=== PATIENT | female | born 1950 | race Caucasian/White ===

== ENCOUNTER 2020-11-13 13:18 | Outpatient (REF) | payer MEDICARE, SELFPAY ==
--- NOTE | 2020-11-13 | US_ITS ---
EXAMINATION: US VENOUS ULTRASOUND WITH DOPPLER LOWER EXTREMITY, BILATERAL CLINICAL INFORMATION: Bilateral lower extremity edema and swelling COMPARISON: None TECHNIQUE: Ultrasound of the deep veins is performed from the hip to the calf with compression sonography and color and pulse Doppler assessment. Spectral analysis with color-flow imaging is performed. FINDINGS: RIGHT: There is normal venous compression and respiratory variation and augmented flow. The visualized common femoral vein, superficial femoral vein, profunda femoral vein, popliteal vein, and the trifurcation region shows no evidence of deep venous thrombosis. There is no significant popliteal fossa cyst. LEFT: There is normal venous compression and respiratory variation and augmented flow. The visualized common femoral vein, superficial femoral vein, profunda femoral vein, popliteal vein, and the trifurcation region shows no evidence of deep venous thrombosis. There is no significant popliteal fossa cyst. If the patient's symptoms persist, followup ultrasound in 5 days 7 days might be of value to exclude proximal propagation from a non-visualized calf vein. US/US venous duplex LE BI IMPRESSION: No DVT demonstrated in the right and the left lower extremity.
== END 2020-11-13 13:19 | disposition home or self-care (01) ==
LOC: HO.US 13:18
PROVIDERS: Visit Provider Internal Medicine
DX: R22.41 Localized swelling, mass and lump, right lower limb (principal)
CPT/HCPCS: 93970

== ENCOUNTER 2020-11-17 13:42 | Inpatient (IN) | payer MEDICARE, SELFPAY ==
--- NOTE | 2020-11-17 | ECG_ITS ---
Test Reason : AMS Blood Pressure : / mmHG Vent. Rate : 057 BPM Atrial Rate : 057 BPM P-R Int : 158 ms QRS Dur : 080 ms QT Int : 482 ms P-R-T Axes : 037 020 023 degrees QTc Int : 469 ms Sinus bradycardia Low voltage QRS Borderline ECG When compared with ECG of 12-NOV-2019 10:10, No significant change was found Referred By: Oz Ardon Electronically Signed By:CHAPARRO OLMOS
[2020-11-17 14:02] VITALS: BP 124/70; BP 138/51; PULSE 58; PULSE 60; RESP 16; TEMP 36.9; O2SAT 97; BMI 23.0
--- NOTE | 2020-11-17 14:47 | CT_ITS ---
EXAMINATION: CT BRAIN AND CHEST. CLINICAL INFORMATION: History of brain tumor. Rule out mass effect. COMPARISON: MRI brain 06/26/2020. CT chest 05/12/2020 TECHNIQUE: 5 mm thin axial and reformatted 2 mm thin sagittal coronal images of brain were obtained. DLP 597. Chest 2 views. FINDINGS: Brain: There is no acute intra-axial, extra-axial bleed, masses or midline shift. The lateral ventricles are symmetrical in size but enlarged. The larios to white matter differentiation is maintained. There is diffuse periventricular hypodensity compatible with chronic small vessel ischemic changes. Bone windows reveal no calvarial abnormality. There is no scalp soft tissue abnormality. Bilateral paranasal sinuses and mastoid air cells are well-aerated. There are bilateral posterior orbital intraconal masses. They are similar to the MRI study. Chest x-ray: The lungs are well-expanded and clear of acute process. The heart size and pulmonary vascularity is normal. There is right central venous port with its tip in the proximal SVC. CT/CT head/brain wo con IMPRESSION: No acute intracranial process seen. Cerebral volume loss and chronic small vessel ischemic changes. Bilateral posterior intraconal orbital masses similar to MRI of brain 06/26/2020 Unremarkable chest exam
--- NOTE | 2020-11-17 15:14 | PC.NURSE ---
Unable to access port to right chest, pt does reports freuqent issues with accessing in Oncology. Attempted to obtain peripheralline x2 and unable, another RN attempting with Ultrasound at this time
[2020-11-17] MEDS: 0.9 % Sodium Chloride 1,000 ML 999 ML IV ×2 (15:52→18:09)
--- NOTE | 2020-11-17 15:52 | PC.NURSE ---
22g in right hand obtained, awaiting phlebotomy for lab draw
[2020-11-17 16:51] VITALS: BP 142/53; PULSE 58; RESP 16; TEMP 36.8; O2SAT 97
[2020-11-17 16:55] LABS: Alanine Aminotransferase 26 U/L (0-31); Albumin Level 2.1 g/dL (3.5-5.0); Alkaline Phosphatase 189 U/L (39-117); Anion Gap 10 (12-20); Aspartate Amino Transferase 34 U/L (5-31); Bilirubin Total 0.5 mg/dL (0.0-1.0); Blood Urea Nitrogen 12 mg/dL (9-16); Calcium 7.7 mg/dL (8.4-10.2); Carbon Dioxide 27 mmol/L (22-29); Chloride 110 mmol/L (96-108); Creatinine Clr Calc Pharmacy 49.5; Estimated Glomerular Filt Rate > 60; Glucose Random 81 mg/dL (60-115); Potassium 4.4 mmol/l (3.3-5.1); Sodium 143 mmol/L (135-145); Total Protein 5.6 g/dL (6.5-8.0)
[2020-11-17 17:15] LABS: Basophils Absolute Auto 0.1 X10*3/uL (0.0-0.2); Basophils Percent Auto 1.3 % (0-2); Eosinophils Absolute Auto 0.3 X10*3/uL (0.0-0.4); Eosinophils Percent Auto 4.8 % (0-4); Hematocrit 42.1 % (37-47); Hemoglobin 12.8 g/dl (12.0-16.0); Imm Gran Abs Auto 0.03 X10*3/uL (0.00-0.03); Imm Gran Pct Auto 0.6 % (0.0-0.4); Lymphocytes Absolute Auto 1.2 X10*3/uL (1.2-4.9); Lymphocytes Percent Auto 22.2 % (20-40); MANUAL DIFF FLAG NO; Mean Corpuscular HGB Conc 30.4 g/dl (31.0-35.0); Mean Corpuscular Hemoglobin 25.7 pg (27.0-33.0); Mean Corpuscular Volume 84.5 fL (80-98); Mean Platelet Volume 9.3 fL (9.4-12.3); Monocytes Absolute Auto 0.8 X10*3/uL (0.1-1.2); Monocytes Percent Auto 13.9 % (2-11); Neutrophils Absolute Auto 3.1 X10*3/uL (2.0-8.3); Neutrophils Percent Auto 57.2 % (45-73); Platelet Count 256 X10*3/uL (160-400); Red Blood Count 4.98 X10*6/uL (4.20-5.50); Red Cell Distribution Width 17.8 % (11.0-16.0); White Blood Count 5.5 X10*3/uL (4.8-10.8)
--- NOTE | 2020-11-17 17:23 | PC.NURSE ---
Pt striaght cath for cloudy urine, specimen sent. Tolerated well. sinus erin on tele. No changes since last assessment. Coag tube clotted, will attempt to obtain another sample
[2020-11-17 17:25] LABS: Glucose Urine UA NEG (NEG); Nitrite Urine POS (NEG); Specific Gravity - Urine <= 1.005 (1.005-1.025); Urine Blood 2+ (NEG); Urine Ketones NEG (NEG); Urine Protein NEG (NEG-TRACE)
[2020-11-17 17:26] LABS: Appearance Urine CLOUDY; Color Urine STRAW; Leukocyte Esterase Urine 3+ (NEG)
--- NOTE | 2020-11-17 17:29 | ED.GENADULT ---
HPI - General Adult General Chief complaint: Weakness Stated complaint: Weakness x3 Time Seen by Provider: 11/17/20 14:26 Source: patient Limitations: no limitations History of Present Illness HPI narrative: 70-year-old female who presents emergency department for evaluation of weakness times 2-3 weeks. The patient states she has gotten to the point where she is unable to walk secondary to weakness in her lower extremities. The patient does have a history of uterine cancer 2 years prior and brain cancer diagnosed 4 years prior she states that she was having swelling in right lower extremity and saw her oncologist last week was diagnosed with bilateral DVTs. The patient is being treated with Lovenox 60 mg b.i.d.. The patient states that over the past 2-3 days she has had no strength in her lower extremities is having difficulty walking. She denied fever, chills, cough, chest pain, shortness of breath, abdominal pain, frequency, urgency or dysuria, change in her bowel movements. She states she has had a good appetite and is eating. She lives at home with her who is having difficulty caring for her secondary to her weakness. Related Data Home Medications Medication Instructions Recorded Confirmed anakinra 100 mg SUBCUT DAILY 08/29/20 08/29/20 cholecalciferol (vitamin D3) 1 tab PO DAILY 08/29/20 08/29/20 dalfampridine 10 mg PO Q12H 08/29/20 08/29/20 diazepam 2 mg PO BEDTIME PRN 08/29/20 08/29/20 gabapentin 100 mg PO BEDTIME 08/29/20 08/29/20 loperamide 1 cap PO DAILY PRN 08/29/20 08/29/20 melatonin 5 mg PO BEDTIME PRN 08/29/20 08/29/20 omeprazole 1 cap PO DAILY 08/29/20 08/29/20 ondansetron 8 mg PO Q8H 08/29/20 08/29/20 oxycodone 1 tab PO Q4H PRN 08/29/20 08/29/20 propranolol 80 mg PO DAILY 08/29/20 08/29/20 simvastatin 1 tab PO BEDTIME 08/29/20 08/29/20 vemurafenib [Zelboraf] 240 mg PO DAILY 08/29/20 08/29/20 Previous Rx's Medication Instructions Recorded levofloxacin 500 mg PO Q24H 7 Days #7 tab 09/15/20 omeprazole 20 mg PO DAILY #90 cap 10/06/20 enoxaparin 60 mg SUBCUT Q12H #20 ml 11/13/20 Allergies Allergy/AdvReac Type Severity Reaction Status Date / Time Sulfa (Sulfonamide Allergy Intermediate NAUSEA/DRY Verified 08/29/20 10:07 Antibiotics) HEAVES [SULFA (SULFONAMIDE ANTIBIOTICS)] codeine [CODEINE] Allergy Unknown VOMITING Verified 08/29/20 10:07 Review of Systems Review of Systems: Yes all other systems are reviewed and are negative Constitutional: Constitutional: Reports as per HPI Eyes: Eyes: Reports as per HPI ENT: Reports as per HPI Cardiovascular: Cardiovascular: Reports as per HPI Respiratory: Respiratory: Reports as per HPI Gastrointestinal: Gastrointestinal: Reports as per HPI Genitourinary: Genitourinary: Reports as per HPI Musculoskeletal: Musculoskeletal: Reports as per HPI Integumentary/Breasts: Skin/Breast: Reports as per HPI Neurologic: Reports as per HPI and Reports Abnormal speech present Psychiatric: Psychiatric: Reports as per HPI Allergic/Immunologic: Allergic/Immunologic: Reports as per HPI [facility] Past Medical History [facility] Narrative: The patient has a history of hypertension, hyperlipidemia, uterine cancer 2 years prior status post hysterectomy, 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 She denies tobacco and alcohol use. She lives at home with her . Medical History Erdheim-Flagler disease Social History Social History Smoking Status: Never smoker Use of substances other than those prescribed or required for medical reasons: No Advance Directives: Yes Advance Directives on File: Yes Advance Directives Date on File: 08/28/20 Physical Exam Vital Signs: Vital Signs: Last Vital Signs Temp 98.3 F 11/17/20 16:51 Pulse 56 11/17/20 18:00 Resp 16 11/17/20 18:00 BP 150/60 H 11/17/20 18:00 Pulse Ox 97 11/17/20 18:00 Body Mass Index 23.0 Const: General: cooperative and healthy appearing Orientation/consciousness: oriented to person and oriented to place Limitations: no limitations HENMT: Head: Yes normal to inspection, Yes normocephalic and Yes atraumatic Ears: external ears normal General nose exam: Normal external nose present Face and sinus: Yes normal facial exam Mouth: Normal oral and palatal mucosa present Throat: Yes posterior oropharynx normal Eyes: Periorbital: periorbital findings normal Eyelids: Yes eyelids normal Conjunctivae: conjunctivae normal Sclerae: sclerae normal Corneas: corneas normal Pupils: Equal, round and reactive pupils present Direct Ophthalmoscopy: normal light reflex Neck: Neck: Yes full ROM, Yes no lymphadenopathy, Yes no meningeal signs, Yes trachea midline and Yes supple Chest: Chest palpation & inspection: normal inspection of the chest and normal palpation of entire chest wall Resp: Effort & Inspection: normal respiratory effort and able to speak in complete sentences Auscultation: clear to auscultation bilaterally Cardio: Rate: regular rate Rhythm: regular rhythm Heart sounds: S1 normal heart sound present, S2 normal heart sound present and no murmurs GI: Inspection: Yes normal to inspection Palpation (GI): Soft to palpation, nontender, no guarding, not rigid and No hepatosplenomegaly present : General: Yes no CVA tenderness Back/Spine/Pelvis: Back: no CVA tenderness Cervical Spine: normal cervical lordosis Thoracic/Lumbar Spine: thoracic and lumbar spine normal to inspection Skin: Lesions: no lesions Rashes: no rashes Wounds: no wounds Neuro: General: oriented to person, oriented to place and no meningeal signs Cranial nerves: Yes CN's II-XII intact bilaterally and Yes Equal, round and reactive pupils present Cognition (Neuro): normal cognition Speech: Abnormal speech present Motor exam (neuro): Other motor observations present (Bilateral lower extremity weakness, symmetric, unable to hold up against gr) Extrem: General: Yes other (Bilateral lower extremity swelling right greater than left) Psych: Appearance: well kempt Mental Status: mental status grossly normal Speech and movement: Normal speech and movement present Affect: normal affect Attitude: cooperative Thought process: Normal thought process present Thought content: Normal thought content present Course Course Course Narrative: 70-year-old female who presents emergency department for evaluation of weakness times 2-3 weeks, worse over the last 3 days, recently diagnosed with bilateral lower extremity DVTs started on Lovenox. Physical examination did reveal lower extremity weakness, the patient is not able to lift her legs up against gravity can move them side to side. She also significant swelling of the right lower extremity compared to the left secondary to a DVT. Laboratory evaluation did reveal low calcium of 7.7. Urinalysis revealed 3+ leukocyte esterase, 1+ nitrates. Urinalysis revealed 1 WBCs too numerous to count and 4+ bacteria. Given these findings, concerned the patient may have a urinary tract infection causing her weakness, it may also be related to the swelling of her lower extremities secondary to DVTs. I did order Levaquin 750 mg IV on this patient. I did discuss the patient's presentation with the covering hospitalist the patient will be admitted for further treatment. Medical Decision Making Lab Data Result diagrams: 11/17/20 17:05 11/17/20 16:26 Labs: Lab Results 11/17/20 11/17/20 11/17/20 Range/Units 16:26 16:26 17:05 WBC 5.5 (4.8-10.8) X10*3/uL RBC 4.98 (4.20-5.50) X10*6/uL Hgb 12.8 (12.0-16.0) g/dl Hct 42.1 (37-47) % MCV 84.5 (80-98) fL MCH 25.7 L (27.0-33.0) pg MCHC 30.4 L (31.0-35.0) g/dl RDW 17.8 H (11.0-16.0) % Plt Count 256 (160-400) X10*3/uL MPV 9.3 L (9.4-12.3) fL Immature Gran % (Auto) 0.6 H (0.0-0.4) % Neut % (Auto) 57.2 (45-73) % Lymph % (Auto) 22.2 (20-40) % Durham % (Auto) 13.9 H (2-11) % Eos % (Auto) 4.8 H (0-4) % Baso % (Auto) 1.3 (0-2) % Lymph # (Auto) 1.2 (1.2-4.9) X10*3/uL Durham # (Auto) 0.8 (0.1-1.2) X10*3/uL Eos # (Auto) 0.3 (0.0-0.4) X10*3/uL Baso # (Auto) 0.1 (0.0-0.2) X10*3/uL Abs Immat Gran (auto) 0.03 (0.00-0.03) X10*3/uL Absolute Neuts (auto) 3.1 (2.0-8.3) X10*3/uL Absolute Nucleated RBC 0.000 (0.0-0.012) X10*3/uL Nucleated RBC % (auto) 0.0 (0.0-0.2) /100WBC PT Cancelled INR Cancelled APTT Cancelled Sodium 143 (135-145) mmol/L Potassium 4.4 (3.3-5.1) mmol/l Chloride 110 H (96-108) mmol/L Carbon Dioxide 27 (22-29) mmol/L Anion Gap 10 L (12-20) BUN 12 (9-16) mg/dL Creatinine 0.90 (0.5-1.4) mg/dL Estim Creat Clear Calc 49.5 Estimated GFR > 60 Random Glucose 81 (60-115) mg/dL Lactic Acid (0.5-2.0) mmol/L Calcium 7.7 L (8.4-10.2) mg/dL Total Bilirubin 0.5 (0.0-1.0) mg/dL AST 34 H D (5-31) U/L ALT 26 (0-31) U/L Alkaline Phosphatase 189 H D (39-117) U/L Troponin I High Sens (<3.5-17.0) ng/L Total Protein 5.6 L (6.5-8.0) g/dL Albumin 2.1 L (3.5-5.0) g/dL Urine Color Urine Appearance Urine pH (5.0-8.0) Ur Specific Oneill (1.005-1.025) Urine Protein (NEG-TRACE) MG/DL Urine Glucose (UA) (NEG) MG/DL Urine Ketones (NEG) MG/DL Urine Blood (NEG) Urine Nitrite (NEG) Ur Leukocyte Esterase (NEG) Urine RBC (0) /HPF Urine WBC (0-4) /HPF Ur Squamous Epith Cells /LPF Calcium Oxalate Crystal /LPF Urine Bacteria /LPF 11/17/20 11/17/20 11/17/20 Range/Units 17:05 17:05 17:16 WBC (4.8-10.8) X10*3/uL RBC (4.20-5.50) X10*6/uL Hgb (12.0-16.0) g/dl Hct (37-47) % MCV (80-98) fL MCH (27.0-33.0) pg MCHC (31.0-35.0) g/dl RDW (11.0-16.0) % Plt Count (160-400) X10*3/uL MPV (9.4-12.3) fL Immature Gran % (Auto) (0.0-0.4) % Neut % (Auto) (45-73) % Lymph % (Auto) (20-40) % Durham % (Auto) (2-11) % Eos % (Auto) (0-4) % Baso % (Auto) (0-2) % Lymph # (Auto) (1.2-4.9) X10*3/uL Durham # (Auto) (0.1-1.2) X10*3/uL Eos # (Auto) (0.0-0.4) X10*3/uL Baso # (Auto) (0.0-0.2) X10*3/uL Abs Immat Gran (auto) (0.00-0.03) X10*3/uL Absolute Neuts (auto) (2.0-8.3) X10*3/uL Absolute Nucleated RBC (0.0-0.012) X10*3/uL Nucleated RBC % (auto) (0.0-0.2) /100WBC PT INR APTT Sodium (135-145) mmol/L Potassium (3.3-5.1) mmol/l Chloride (96-108) mmol/L Carbon Dioxide (22-29) mmol/L Anion Gap (12-20) BUN (9-16) mg/dL Creatinine (0.5-1.4) mg/dL Estim Creat Clear Calc Estimated GFR Random Glucose (60-115) mg/dL Lactic Acid 1.5 (0.5-2.0) mmol/L Calcium (8.4-10.2) mg/dL Total Bilirubin (0.0-1.0) mg/dL AST (5-31) U/L ALT (0-31) U/L Alkaline Phosphatase (39-117) U/L Troponin I High Sens 5.2 (<3.5-17.0) ng/L Total Protein (6.5-8.0) g/dL Albumin (3.5-5.0) g/dL Urine Color STRAW Urine Appearance CLOUDY Urine pH 6.0 (5.0-8.0) Ur Specific Oneill <= 1.005 (1.005-1.025) Urine Protein NEG (NEG-TRACE) MG/DL Urine Glucose (UA) NEG (NEG) MG/DL Urine Ketones NEG (NEG) MG/DL Urine Blood 2+ H (NEG) Urine Nitrite POS H (NEG) Ur Leukocyte Esterase 3+ H (NEG) Urine RBC 5-9 H (0) /HPF Urine WBC TNTC H (0-4) /HPF Ur Squamous Epith Cells NONE /LPF Calcium Oxalate Crystal TRACE /LPF Urine Bacteria 4+ /LPF Discharge Plan Discharge Clinical Impression: Weakness Urinary tract infection Qualifiers: Urinary tract infection type: acute cystitis Hematuria presence: without hematuria Qualified Code(s): N30.00 - Acute cystitis without hematuria Patient Disposition: Admitted As Inpatient
[2020-11-17 17:30] LABS: Bacteria Urine 4+ /LPF; Calcium Oxalate Crystals Urine TRACE /LPF; WBC Urine TNTC /HPF (0-4)
[2020-11-17 17:45] LABS: Lactic Acid 1.5 mmol/L (0.5-2.0)
[2020-11-17 17:52] LABS: Troponin-I High Sensitivity 5.2 ng/L (<3.5-17.0)
[2020-11-17 18:00] VITALS: BP 150/60; PULSE 56; RESP 16; O2SAT 97
[2020-11-17] MEDS: levoFLOXacin/D5W 750 MG/150 ML PIGGYBACK 100 MG IV (18:09)
[2020-11-17 19:04] LABS: Influenza A PCR NEGATIVE (Negative); Influenza B PCR NEGATIVE (Negative); Resp Syncy Virus RNA Qual PCR NEGATIVE (Negative); SARS COV2 PCR INHOUSE NEGATIVE (Negative)
--- NOTE | 2020-11-17 19:32 | PC.NURSE ---
PT AWAKE AND REQUESTING TO BE CHG. PT STATES I URINATED IN MY BED . PT REQUESTING TO CALL ON PHONE. PT CALLING AT THIS TIME. PT DENIES ANY OTHER COMPLAINTS. PT A&OX3, SKIN W/D/P. AWAITING FOR FURTHER ORDERS.
--- NOTE | 2020-11-17 20:27 | PC.NURSE ---
report given to rhea Miner. pt to floor at this time in stretcher.
[2020-11-17] MEDS: cefTRIAXone sodium 1 GM in 0.9 % Sodium Chloride 50 ML IV (21:19)
[2020-11-17] MEDS: Enoxaparin Sodium 80 MG/0.8 ML SYRINGE 60 MG SUBCUT (21:19)
[2020-11-17] MEDS: 0.9 % Sodium Chloride Flush 3 ML SYRINGE IVFLUSH (21:20)
[2020-11-17 22:19] LABS: Hemoglobin 12.1 g/dl (12.0-16.0); Mean Corpuscular HGB Conc 30.3 g/dl (31.0-35.0); Mean Corpuscular Hemoglobin 25.7 pg (27.0-33.0); Mean Corpuscular Volume 84.9 fL (80-98); Mean Platelet Volume 9.1 fL (9.4-12.3); Platelet Count 265 X10*3/uL (160-400); Red Blood Count 4.71 X10*6/uL (4.20-5.50); Red Cell Distribution Width 17.7 % (11.0-16.0); White Blood Count 5.5 X10*3/uL (4.8-10.8)
[2020-11-17 22:29] LABS: Partial Thromboplastin Time 40.1 SEC (24.1-38.0)
[2020-11-17 22:51] LABS: Prothrombin Time 12.4 SEC (10.8-13.0)
[2020-11-17 23:50] VITALS: BP 127/53; PULSE 59; RESP 19; TEMP 36.4; O2SAT 98
[2020-11-18] MEDS: Enoxaparin Sodium 60 MG/0.6 ML SYRINGE SUBCUT ×2 (05:19→16:46)
[2020-11-18 06:37] LABS: MANUAL DIFF FLAG NO
[2020-11-18 06:49] LABS: INTERNATIONAL NORM RATIO 1.1 (0.9-1.1); Prothrombin Time 13.2 SEC (10.8-13.0)
[2020-11-18 06:54] LABS: Basophils Absolute Auto 0.1 X10*3/uL (0.0-0.2); Basophils Percent Auto 0.8 % (0-2); Eosinophils Absolute Auto 0.3 X10*3/uL (0.0-0.4); Eosinophils Percent Auto 4.2 % (0-4); Hematocrit 39.6 % (37-47); Hemoglobin 12.2 g/dl (12.0-16.0); Imm Gran Abs Auto 0.04 X10*3/uL (0.00-0.03); Imm Gran Pct Auto 0.7 % (0.0-0.4); Lymphocytes Absolute Auto 0.9 X10*3/uL (1.2-4.9); Lymphocytes Percent Auto 14.9 % (20-40); Mean Corpuscular HGB Conc 30.8 g/dl (31.0-35.0); Mean Corpuscular Hemoglobin 25.7 pg (27.0-33.0); Mean Corpuscular Volume 83.4 fL (80-98); Mean Platelet Volume 9.7 fL (9.4-12.3); Monocytes Absolute Auto 0.8 X10*3/uL (0.1-1.2); Monocytes Percent Auto 13.8 % (2-11); Neutrophils Absolute Auto 3.9 X10*3/uL (2.0-8.3); Neutrophils Percent Auto 65.6 % (45-73); Platelet Count 277 X10*3/uL (160-400); Red Blood Count 4.75 X10*6/uL (4.20-5.50); Red Cell Distribution Width 17.7 % (11.0-16.0); White Blood Count 5.9 X10*3/uL (4.8-10.8)
[2020-11-18 07:13] LABS: Anion Gap 12 (12-20); Blood Urea Nitrogen 10 mg/dL (9-16); Calcium 7.6 mg/dL (8.4-10.2); Carbon Dioxide 23 mmol/L (22-29); Chloride 117 mmol/L (96-108); Creatinine Clr Calc Pharmacy 58.6; Estimated Glomerular Filt Rate > 60; Glucose Random 78 mg/dL (60-115); Sodium 148 mmol/L (135-145)
[2020-11-18 07:18] VITALS: BP 95/63; PULSE 95; RESP 15; TEMP 36.5; O2SAT 96
[2020-11-18] MEDS: Dextrose 5 % 1,000 ML 50 ML IVCONT (08:28)
[2020-11-18] MEDS: 0.9 % Sodium Chloride Flush 3 ML SYRINGE IVFLUSH (08:32)
[2020-11-18] MEDS: Cholecalciferol (Vitamin D3) 25 MCG TABLET 50 MCG PO (08:34)
[2020-11-18] MEDS: Omeprazole 20 MG CAPSULE.DR PO (08:34)
--- NOTE | 2020-11-18 10:10 | MHC.CM.PN ---
Addendum entered by Beronica Esquivel RN 11/18/20 10:21: /HCP- MAINE GROSSADAMARIS CELL [phone], HOME [phone] PCP AND ONCOLOGY: DR. TA ANDERSON, PER WAS RECEIVING MONTHLY TREATMENTS ON [facility], HOWEVER STOPPED CURRENT TREATMENT DUE TO CAUSING WEAKNESS AND PATIENT HAS NOT STARTED NEW TREATMENT. [facility]- WEEKLY NURSING VISITS, PT TWICE WEEKLY, RECENTLY STARTED OT HOWEVER UNABLE TO PARTICIPATE DUE TO WEAKNESS, PER [facility] FOR PALLIATIVE CARE PER PATIENT HAS CHRONIC UTI'S AND ONE OF HER MEDICATIONS FOR ERDHEIM-JÚNIOR'S DISEASE, DALFAMPRIDINE WHICH PATIENT RECEIVES TWICE A DAY AND PER PCP SHOULD BE DECREASED TO ONCE DAILY WHEN PATIENT HAS UTI. Original Note: EMR REVIEWED, DISCHARGE PLAN HOME WITH INCREASE IN [facility] SERVICES WITH HOME PHYSICAL THERAPY AND OCCUPATIONAL THERAPY VS SHORT TERM REHAB, PER PATIENTS MAINE PATIENT HAD A BAD EXPERIENCE AT [facility], PT DID HAVE A BETTER EXPERIENCE AT [facility], PREFERS SHE GOES TO SHORT TERM REHAB ALTHOUGH PATIENT IS HESITANT. PER (MAINE) WHO IS HEALTH [facility]ARE [employer] PATIENT HAD BECOME WEAKER SINCE [facility] APPOINTMENT LAST TUESDAY AND OVER THE WEEKEND WAS UNABLE TO STAND AT ALL, REPORTS PT WAS DIAGNOSED WITH BILATERAL DVT'S LAST TUESDAY AND STARTED ON LOVENOX INJECTIONS 60MG TWICE DAILY BUT DID NOT RECEIVE THEM UNTIL TUESDAY. REPORTS WHEN HE ATTEMPTED TO ASSIST PATIENT WITH TRANSFERRING SHE ENDED UP ON THE GROUND THREE TIMES AND HE HAD TO KEEP HER IN BED FOR THE LAST FEW DAYS PREVIOUS TO COMING TO THE HOSPITAL ON 11/17/20, REPORTS THE [facility] CAME IN ON TUESDAY AND CALLED PATIENTS [facility] OFFICE AND WAS DIRECTED TO TAKE PATIENT TO HOSPITAL. /HCP- MAINE FIGUEREDO CELL [id number]
[2020-11-18 11:39] VITALS: BP 106/64; PULSE 68; RESP 17; TEMP 36.6; O2SAT 98
--- NOTE | 2020-11-18 14:41 | HO.PM.IMPN ---
Subjective Subjective Date of Service: 11/18/20 Interval History: uti , general weakness Review of Systems Patient seems generalized weak, denies any chest pain or shortness of breath or abdominal pain. Physical Exam Vital Signs: Vital Signs: Last Vital Signs Temp 97.9 F 11/18/20 11:39 Pulse 68 11/18/20 11:39 Resp 17 11/18/20 11:39 BP 106/64 11/18/20 11:39 Pulse Ox 98 11/18/20 11:39 Body Mass Index 23.0 Physical exam: Constitutional: Not in acute distress Cvs: [id number], [id number] , no murmur res: clear to auscultation ,no rhonchii or wheezing abd: no rebound or guarding ,nt, bs present. ext pulses present , no cyanosis neuro: axo3 , nonfocal. Objective Data Current Medications Generic Name Dose Route Start Last Admin Trade Name Freq PRN Reason Stop Dose Admin Acetaminophen 650 mg 11/17/20 20:58 Acetaminophen 325 Mg Tablet PO Q6H PRN Pain, Mild (Pain Scale 1-3) Atorvastatin Calcium 10 mg 11/18/20 21:00 Atorvastatin Calcium 10 Mg Tablet PO BEDTIME LANEY Diazepam 2 mg 11/17/20 21:49 Diazepam 2 Mg Tablet PO BEDTIME PRN Anxiety Enoxaparin Sodium 60 mg 11/18/20 05:00 11/18/20 05:19 Enoxaparin Sodium 60 Mg/0.6 Ml Syringe SUBCUT 60 mg BID@0500,1700 LANEY Administration Gabapentin 100 mg 11/18/20 21:00 Gabapentin 100 Mg Capsule PO BEDTIME LANEY Ceftriaxone Sodium 1 gm/ 50 mls @ 100 mls/hr 11/17/20 21:00 11/17/20 21:56 Sodium Chloride IV Infused Q24H LANEY Infusion Dextrose 1,000 mls @ 50 mls/hr 11/18/20 08:00 11/18/20 08:28 D5w IVCONT 50 mls/hr .Q20H LANEY Administration Loperamide HCl 2 mg 11/17/20 21:49 Loperamide Hcl 2 Mg Capsule PO DAILY PRN Diarrhea Melatonin 3 mg 11/17/20 22:00 Melatonin 3 Mg Tablet PO BEDTIME PRN Insomnia Patient Own 100 each 11/18/20 13:00 11/18/20 14:36 Medication (Kineret SUBCUT 100 each 100 Mg/0.67 Ml) DAILY LANEY Administration Non-Formulary Medication 10 mg 11/17/20 22:00 Dalfampridine PO Q12H LANEY Patient Own 240 each 11/18/20 13:00 11/18/20 14:37 Medication (Zelboraf PO 240 each 240 Mg Tablet) DAILY LANEY Administration Omeprazole 20 mg 11/18/20 09:00 11/18/20 08:34 Omeprazole 20 Mg Capsule.Dr PO 20 mg DAILY LANEY Administration Ondansetron HCl 4 mg 11/17/20 20:58 Ondansetron Hcl 4 Mg/2 Ml Vial IVPUSH Q8H PRN Nausea and Vomiting Oxycodone HCl 5 mg 11/17/20 21:49 Oxycodone Hcl Immed Release 5 Mg Tablet PO Q4H PRN Pain Pharmacy Consult 1 each 11/17/20 19:41 Consult Rx Perform Med Rec MISCELLANE ONCE PRN Consult order Pharmacy Consult 1 each 11/17/20 20:10 Consult Rx Perform Med Rec MISCELLANE ONCE PRN Consult order Sodium Chloride 3 ml 11/18/20 00:00 11/18/20 08:32 0.9 % Sodium Chloride Flush 3 Ml Syringe IVFLUSH 3 ml QSHIFT LANEY Administration Vitamin D 50 mcg 11/18/20 09:00 11/18/20 08:34 Cholecalciferol (Vitamin D3) 25 Mcg Tablet PO 50 mcg DAILY LANEY Administration Labs CBC & Chem 7: 11/18/20 06:15 11/18/20 06:14 Microbiology Microbiology Results: Microbiology 11/17/20 Unknown Urine Catheterized - Straight Catheter Urine Culture - Preliminary Gram negative abraham Assessment and Plan (1) Weakness: Status: Acute (2) Urinary tract infection: Status: Acute Assessment and Plan: 69 year women admitted with resistant urinary tract infection. last ua culture: Grew Proteus mirabilis: Sensitive to ertapenem. 1. Resistant urinary tract infection. Will start the patient on ertapenem, DC ceftriaxone, id evaluation. 2. Hyperlipidemia. Continue statin. 3. Hypertension. Continue propranolol. 4. GERD. Continue PPI. 5. Erdheim-Neno disease. Patient is on anakinra and zelboraf will have to bring from home as they are non formulary. 6. DVT prophylaxis with Heparin
[2020-11-18 15:34] LABS: Sodium 143 mmol/L (135-145)
[2020-11-18 15:43] VITALS: BP 124/62; PULSE 70; RESP 16; TEMP 36.4; O2SAT 98
--- NOTE | 2020-11-18 16:36 | HP_ITS ---
DATE OF SERVICE: 11/17/2020 CHIEF COMPLAINT: Weakness. HISTORY OF PRESENT ILLNESS: A 70-year-old woman presented with complaints of 2 weeks of increased weakness. Patient reports that she has even had difficulty just walking. She was recently diagnosed with bilateral DVTs. She does have some noted right lower extremity swelling. She is on Lovenox 60 mg b.i.d. She lives at home with her . She does have a history of UTIs in the past and a history of uterine cancer and brain cancer. She denied chest pain, shortness of breath, nausea, vomiting, diarrhea, fever. She did report some chills, but denied any dysuria or abdominal pain. Labs all within acceptable limits. Urinalysis was positive. COVID negative. Her vital signs stable with no fever. She was given a dose of Levaquin in the ER and 1 dose of therapeutic Lovenox that she had not had any today. She will be admitted for further management and treatment of weakness secondary to urinary tract infection. 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 2. Vertigo. 3. Hypertension. 4. Osteoporosis. 5. Endometrial cancer. 6. Hysterectomy. SOCIAL HISTORY: Lives with her . Denies any alcohol, tobacco, or illicit drug use. Uses a walker and sometimes a wheelchair. FAMILY HISTORY: Denies any cardiac disease. ALLERGIES: TO SULFA AND CODEINE. MEDICATIONS: 1. Dalfampridine ER 10 mg twice daily. 2. Lovenox 60 mg twice daily. 3. Simvastatin 20 mg at bedtime. 4. Zelboraf 240 mg. 5. Vitamin D3 50 mcg tablets daily. 6. Propranolol 80 mg. 7. Gabapentin 100 mg. 8. Gabapentin 300 mg. REVIEW OF SYSTEMS: CONSTITUTIONAL: See HPI. RESPIRATORY: Denies any shortness of breath, cough, or sputum production. CARDIOVASCULAR: Denies any chest pain, orthopnea, PND, or edema. GASTROINTESTINAL: Denies any dysphagia, abdominal pain, nausea, vomiting, or diarrhea. GENITOURINARY: Denies any dysuria, frequency, hematuria. MUSCULOSKELETAL: Denies any joint pain or swelling. NEUROPSYCH: Denies any weakness or seizures. All other systems reviewed are negative. PHYSICAL EXAMINATION: CONSTITUTIONAL: Resting in bed. No acute distress. VITAL SIGNS: 98.3, 56, 16, 150/60, 97% on room air. SKIN: Intact. No rashes or open sores. HEENT: Head is normocephalic, atraumatic. Eyes, pupils are PERRLA. Sclerae anicteric. Mouth and Throat: Mucous membranes are intact and moist. NECK: Supple. No lymphadenopathy. No JVD noted. CHEST: Clear to auscultation without wheezes, rhonchi, or rales. HEART: Regular rate and rhythm. Clear S1, S2. No murmurs, rubs, or gallops. Right lower extremity edema. ABDOMEN: Positive bowel sounds. Soft, nontender. No hepatomegaly or splenomegaly noted. NEURO: The patient is alert and oriented x3. No focal deficits noted. LABORATORY DATA: White blood cell count 5.5, hemoglobin 12.8, hematocrit 42.1, and platelets 256. Sodium is 143, potassium 4.4, chloride is 110, BUN is 12, and creatinine 0.90. Troponin is 5.2. COVID is negative. Urinalysis positive. Nitrites with too numerous to count WBCs. ASSESSMENT AND PLAN: A 70-year-old woman who is being admitted with weakness secondary to urinary tract infection. 1. Urinary tract infection. No sepsis. We will treat with Rocephin, follow urine cultures likely contributing to her weakness. 2. Weakness. History of urinary tract infection. Acute today. The patient declined short-term rehab, but would like rehab in the house if she qualifies. 3. Recent deep vein thrombosis. Continue therapeutic Lovenox. 4. History of Erdheim-[place] disease/endometrial cancer. Continue chemotherapeutics. 5. Deep vein thrombosis prophylaxis with therapeutic Lovenox. 6. Case discussed with Dr. Álvaro Bhatia. 7. Full code. TAMMY Gupta MD JR/[place] / [phone]
[2020-11-18] MEDS: Ertapenem Sodium 1 GM in 0.9 % Sodium Chloride 50 ML IV (16:46)
[2020-11-18] MEDS: Atorvastatin Calcium 10 MG TABLET PO (20:22)
[2020-11-18] MEDS: Gabapentin 100 MG CAPSULE PO (20:22)
[2020-11-18 23:46] VITALS: BP 115/74; PULSE 68; RESP 16; TEMP 36.2; O2SAT 99
[2020-11-19] MEDS: Enoxaparin Sodium 60 MG/0.6 ML SYRINGE SUBCUT ×2 (04:39→16:42)
[2020-11-19 07:03] VITALS: BP 139/67; PULSE 72; RESP 17; TEMP 36.5; O2SAT 99
[2020-11-19 07:14] LABS: Anion Gap 14 (12-20); Blood Urea Nitrogen 11 mg/dL (9-16); Calcium 7.9 mg/dL (8.4-10.2); Carbon Dioxide 20 mmol/L (22-29); Chloride 112 mmol/L (96-108); Creatinine Clr Calc Pharmacy 53.6; Estimated Glomerular Filt Rate > 60; Glucose Random 79 mg/dL (60-115); Potassium 4.8 mmol/l (3.3-5.1); Sodium 141 mmol/L (135-145)
--- NOTE | 2020-11-19 08:55 | MHC.HEMONCSW ---
S3W ADMISSION DUE TO UTI. MET WITH , REPORTS SHE IS TOO WEAK TO BE CARED FOR AT HOME. HE REQUESTS SHORT TERM REHAB TO [facility] RE-FAXED [facility]ISTANCE APPLICATION. DISCUSSED DIFFICULTY OF [place]....HIGHLY VERBAL ABOUT THIS BUT COMMITTED TO PATIENT. IS MANAGING TO EAT AND SLEEP BUT WORRIES ABOUT PATIENT. REASSURANCE AND SUPPORT PROVIDED. HE IS AWARE OF MY AVAILABILITY..
[2020-11-19] MEDS: Cholecalciferol (Vitamin D3) 25 MCG TABLET 50 MCG PO (09:27)
[2020-11-19] MEDS: Omeprazole 20 MG CAPSULE.DR PO (09:27)
[2020-11-19] MEDS: Ertapenem Sodium 1 GM in 0.9 % Sodium Chloride 50 ML IV (09:28)
[2020-11-19] MEDS: 0.9 % Sodium Chloride Flush 3 ML SYRINGE IVFLUSH ×3 (09:38→23:54)
--- NOTE | 2020-11-19 12:10 | P.PNIM_ITS ---
Subjective Subjective Date of Service: 11/20/20 Interval History: uti , generlaised weakness progressing form 3-4 weeks Review of Systems Still feels generalized weak but says that she could able to lift her legs a bit better, denies any chest pain or shortness of breath or abdominal pain. Physical Exam Vital Signs: Vital Signs: Last Vital Signs Temp 97.7 F 11/19/20 07:03 Pulse 72 11/19/20 07:03 Resp 17 11/19/20 07:03 BP 139/67 11/19/20 07:03 Pulse Ox 99 11/19/20 07:03 Body Mass Index 23.0 Physical exam: Constitutional: Noted due distress. Cvs: [id number], [id number] , no murmur res: clear to auscultation ,no rhonchii or wheezing abd: no rebound or guarding ,nt, bs present. ext: pulses present , no cyanosis neuro: axo3 , generalised weak , lifting her leg slightly better. Objective Data Current Medications Generic Name Dose Route Start Last Admin Trade Name Griffinq PRN Reason Stop Dose Admin Acetaminophen 650 mg 11/17/20 20:58 Acetaminophen 325 Mg Tablet PO Q6H PRN Pain, Mild (Pain Scale 1-3) Atorvastatin Calcium 10 mg 11/18/20 21:00 11/18/20 20:22 Atorvastatin Calcium 10 Mg Tablet PO 10 mg BEDTIME LANEY Administration Diazepam 2 mg 11/17/20 21:49 Diazepam 2 Mg Tablet PO BEDTIME PRN Anxiety Enoxaparin Sodium 60 mg 11/18/20 05:00 11/19/20 04:39 Enoxaparin Sodium 60 Mg/0.6 Ml Syringe SUBCUT 60 mg BID@0500,1700 LANEY Administration Gabapentin 100 mg 11/18/20 21:00 11/18/20 20:22 Gabapentin 100 Mg Capsule PO 100 mg BEDTIME LANEY Administration Ertapenem 1 gm/ Sodium 50 mls @ 100 mls/hr 11/18/20 16:00 11/19/20 10:07 Chloride IV Infused DAILY LANEY Infusion Loperamide HCl 2 mg 11/17/20 21:49 Loperamide Hcl 2 Mg Capsule PO DAILY PRN Diarrhea Melatonin 3 mg 11/17/20 22:00 Melatonin 3 Mg Tablet PO BEDTIME PRN Insomnia Non-Formulary Medication 10 mg 11/17/20 22:00 Dalfampridine PO Q12H LANEY Patient Own 240 each 11/18/20 13:00 11/19/20 09:27 Medication (Zelboraf PO 240 each 240 Mg Tablet) DAILY LANEY Administration Patient Own 100 each 11/19/20 21:00 Medication (Kineret SUBCUT 100 Mg/0.67 Ml) BEDTIME [facility] Omeprazole 20 mg 11/18/20 09:00 11/19/20 09:27 Omeprazole 20 Mg Capsule.Dr PO 20 mg DAILY LANEY Administration Ondansetron HCl 4 mg 11/17/20 20:58 Ondansetron Hcl 4 Mg/2 Ml Vial IVPUSH Q8H PRN Nausea and Vomiting Oxycodone HCl 5 mg 11/17/20 21:49 Oxycodone Hcl Immed Release 5 Mg Tablet PO Q4H PRN Pain Pharmacy Consult 1 each 11/17/20 19:41 Consult Rx Perform Med Rec MISCELLANE ONCE PRN Consult order Pharmacy Consult 1 each 11/17/20 20:10 Consult Rx Perform Med Rec MISCELLANE ONCE PRN Consult order Sodium Chloride 3 ml 11/18/20 00:00 11/19/20 09:38 0.9 % Sodium Chloride Flush 3 Ml Syringe IVFLUSH 3 ml QSHIFT LANEY Administration Vitamin D 50 mcg 11/18/20 09:00 11/19/20 09:27 Cholecalciferol (Vitamin D3) 25 Mcg Tablet PO 50 mcg DAILY LANEY Administration Labs CBC & Chem 7: 11/18/20 06:15 11/19/20 06:06 Microbiology Microbiology Results: Microbiology 11/17/20 Unknown Urine Catheterized - Straight Catheter Urine Culture - Final Escherichia coli 11/17/20 17:05 Blood - Venous Blood Culture - Preliminary No growth after 24 hours. 11/17/20 16:26 Blood - Venous Blood Culture - Preliminary No growth after 24 hours. Assessment and Plan (1) Weakness: Status: Acute (2) Urinary tract infection: Problem details: She has ESBL UTI She has mild dysuria,no pyelonephritis or toxicity Status: Acute Assessment and Plan: 69 year women admitted with resistant urinary tract infection. last ua culture: Grew Proteus mirabilis: Sensitive to ertapenem. 1. Resistant urinary tract infection. on patient on ertapenem, id evaluation pending. 2. Hyperlipidemia. Continue statin. 3. Hypertension. Continue propranolol. 4. GERD. Continue PPI. 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 6. DVT prophylaxis with Heparin
--- NOTE | 2020-11-19 13:00 | PM.NEUROCN ---
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 She had mediastinal biopsy suggesting that the diagnosis was likely chronic. Orbital lesions were removed. She was initially treated with interferon without any significant response. She was later treated with Zelboraf and Kineret. She was following Dr. Vincent He in oncology, had also seen Dr. Encinas, specialist on this condition, in [place]. She was admitted hospital with increasing difficulty walking and lethargy. Of note, she responded quite well to dalfampridine with significant improvement in walking, but more recently that effect was not noted. Review of Systems Review of Systems: As reported in initial HPI. There was no complaint of any recent cold or flu-like illness. Her complaints mostly were unsteadiness lethargy and weakness. Neurologic: Reports as per HPI and Reports Abnormal speech present [facility] Past Medical History Medical History Erdheim-[place] disease Social History Social History Household Members: Spouse Housing: House Do you presently have visiting nurse or other home services: Yes Smoking Status: Never smoker Use of substances other than those prescribed or required for medical reasons: No Currently Displaying Signs/Symptoms of Drug Intoxication Withdrawal: No Have you been hit, kicked, punched, or otherwise hurt by someone within the past year? If so, by whom?: No Do you feel safe in your current relationship?: Yes Is there a partner from a previous relationship who is making you feel unsafe now?: No Are you made to feel afraid or neglected: No Advance Directives: Yes Advance Directives on File: Yes Advance Directives Date on File: 08/28/20 Do you have thoughts of harming others: None Do you have a plan to hurt others: No Plan Recently lost weight without trying: No service: No Current occupational status: retired Meds Allergies Allergy/AdvReac Type Severity Reaction Status Date / Time Sulfa (Sulfonamide Allergy Intermediate NAUSEA/DRY Verified 08/29/20 10:07 Antibiotics) HEAVES [SULFA (SULFONAMIDE ANTIBIOTICS)] codeine [CODEINE] Allergy Unknown VOMITING Verified 08/29/20 10:07 Home Medications Medication Instructions Recorded Confirmed Type anakinra 100 mg SUBCUT DAILY 08/29/20 11/17/20 History cholecalciferol (vitamin D3) 1 tab PO DAILY 08/29/20 11/17/20 History dalfampridine 10 mg PO Q12H 08/29/20 11/17/20 History diazepam 2 mg PO BEDTIME PRN 08/29/20 11/17/20 History gabapentin 100 mg PO BEDTIME 08/29/20 11/17/20 History loperamide 1 cap PO DAILY PRN 08/29/20 11/17/20 History melatonin 5 mg PO BEDTIME PRN 08/29/20 11/17/20 History omeprazole 1 cap PO DAILY 08/29/20 11/17/20 History ondansetron 8 mg PO Q8H 08/29/20 11/17/20 History oxycodone 1 tab PO Q4H PRN 08/29/20 11/17/20 History propranolol 80 mg PO DAILY 08/29/20 11/17/20 History simvastatin 1 tab PO BEDTIME 08/29/20 11/17/20 History vemurafenib [Zelboraf] 240 mg PO DAILY 08/29/20 11/17/20 History enoxaparin 60 mg SUBCUT BID@0500,1700 11/17/20 11/17/20 History Physical Exam Vital Signs: Vital Signs: Last Vital Signs Temp 97.7 F 11/19/20 07:03 Pulse 72 11/19/20 07:03 Resp 17 11/19/20 07:03 BP 139/67 11/19/20 07:03 Pulse Ox 99 11/19/20 07:03 Body Mass Index 23.0 She was alert and awake with normal spontaneity of speech fluency comprehension and affect. She recognized me right away even when I was wearing a mask. External ocular muscles were intact. Visual schaffer are full. Face was symmetrical. There was no obvious focal arm weakness. She was able to lift left leg against gravity but not right. Deep tendon reflexes were absent with left extensor right equivocal plantar. There was moderate bilateral leg edema. Neuro: Speech: Abnormal speech present Results Labs CBC & Chem 7: 11/18/20 06:15 11/19/20 06:06 Labs: BMP 11/18/20 11/19/20 15:08 06:06 Sodium 143 141 Potassium 4.8 Chloride 112 H Carbon Dioxide 20 L BUN 11 Creatinine 0.83 Calcium 7.9 L Her MRI of brain in June reveal significant cerebellopontine angle area lesions, which typically could affect balance and gait. Microbiology Microbiology Results: Microbiology 11/17/20 Unknown Urine Catheterized - Straight Catheter Urine Culture - Final Escherichia coli 11/17/20 17:05 Blood - Venous Blood Culture - Preliminary No growth after 24 hours. 11/17/20 16:26 Blood - Venous Blood Culture - Preliminary No growth after 24 hours. Assessment and Plan (1) Weakness: Status: Acute Her weakness and unsteadiness is primarily caused by brain lesions from her underlying disease. She had significant cerebellopontine angle lesions. At this time she was already probably maximally treated for this condition. I would suggest obtaining a noncontrast MRI again to see if there was any evidence of further worsening. Otherwise underlying treatment would continue and I would recommend involving physical therapy and occupational therapy for exercise regimen.
--- NOTE | 2020-11-19 13:07 | MHC.CM.PN ---
PER HOSPITALIST ROUNDS, INCREASED LEG WEAKNESS, AND NO PLAN FOR DISCHARGE TODAY. AWAITING NEURO INPUT. PLAN WILL BE SNF REFERRALS ONCE PATIENT DECIDES FROM [facility] LIST GIVEN
[2020-11-19 15:22] VITALS: BP 109/64; PULSE 88; RESP 18; TEMP 36.4; O2SAT 99
[2020-11-19] MEDS: Acetaminophen 325 MG TABLET 650 MG PO (16:41)
--- NOTE | 2020-11-19 16:41 | W.PM.IDCN ---
History of Present Illness Data of Consult Service Date: 11/19/20 Requesting physician: Nita Kaba Primary Care Provider: Vincent He HPI Reason for consult: dysuria She presents with weakness bilateral legs She has swelling She has minimal dysuria ESBL urine Review of Systems Review of Systems: Yes all other systems are reviewed and are negative Neurologic: Reports as per HPI and Reports Abnormal speech present PMFSH Past Medical History Medical History Erdheim-[place] disease Family History Family history: reviewed and not pertinent Social History Social History Household Members: Spouse Housing: House Do you presently have visiting nurse or other home services: Yes Smoking Status: Never smoker Use of substances other than those prescribed or required for medical reasons: No Currently Displaying Signs/Symptoms of Drug Intoxication Withdrawal: No Have you been hit, kicked, punched, or otherwise hurt by someone within the past year? If so, by whom?: No Do you feel safe in your current relationship?: Yes Is there a partner from a previous relationship who is making you feel unsafe now?: No Are you made to feel afraid or neglected: No Advance Directives: Yes Advance Directives on File: Yes Advance Directives Date on File: 08/28/20 Do you have thoughts of harming others: None Do you have a plan to hurt others: No Plan Recently lost weight without trying: No service: No Current occupational status: retired Meds Allergies Allergy/AdvReac Type Severity Reaction Status Date / Time Sulfa (Sulfonamide Allergy Intermediate NAUSEA/DRY Verified 08/29/20 10:07 Antibiotics) HEAVES [SULFA (SULFONAMIDE ANTIBIOTICS)] codeine [CODEINE] Allergy Unknown VOMITING Verified 08/29/20 10:07 Home Medications Medication Instructions Recorded Confirmed Type anakinra 100 mg SUBCUT DAILY 08/29/20 11/17/20 History cholecalciferol (vitamin D3) 1 tab PO DAILY 08/29/20 11/17/20 History dalfampridine 10 mg PO Q12H 08/29/20 11/17/20 History diazepam 2 mg PO BEDTIME PRN 08/29/20 11/17/20 History gabapentin 100 mg PO BEDTIME 08/29/20 11/17/20 History loperamide 1 cap PO DAILY PRN 08/29/20 11/17/20 History melatonin 5 mg PO BEDTIME PRN 08/29/20 11/17/20 History omeprazole 1 cap PO DAILY 08/29/20 11/17/20 History ondansetron 8 mg PO Q8H 08/29/20 11/17/20 History oxycodone 1 tab PO Q4H PRN 08/29/20 11/17/20 History propranolol 80 mg PO DAILY 08/29/20 11/17/20 History simvastatin 1 tab PO BEDTIME 08/29/20 11/17/20 History vemurafenib [Zelboraf] 240 mg PO DAILY 08/29/20 11/17/20 History enoxaparin 60 mg SUBCUT BID@0500,1700 11/17/20 11/17/20 History Physical Exam Vital Signs: Vital Signs: Last Vital Signs Temp 97.5 F 11/19/20 15:22 Pulse 88 11/19/20 15:22 Resp 18 11/19/20 15:22 BP 109/64 11/19/20 15:22 Pulse Ox 99 11/19/20 15:22 Body Mass Index 23.0 Const: General: cooperative HENMT: Head: Yes normal to inspection Resp: Effort & Inspection: normal respiratory effort Cardio: Rate: regular rate Rhythm: regular rhythm GI: Palpation (GI): nontender Neuro: Speech: Abnormal speech present Extrem: Right lower extremity: edema Assessment and Plan (1) Urinary tract infection: Qualifiers: Hematuria presence: without hematuria Urinary tract infection type: acute cystitis Qualified Code(s): N30.00 - Acute cystitis without hematuria Problem details: She has ESBL UTI She has mild dysuria,no pyelonephritis or toxicity Status: Acute Macrobid 100 mg po bid for two weeks (2) Weakness: Status: Acute Results Labs CBC & Chem 7: 11/18/20 06:15 11/19/20 06:06 Labs: BMP 11/19/20 06:06 Sodium 141 Potassium 4.8 Chloride 112 H Carbon Dioxide 20 L BUN 11 Creatinine 0.83 Calcium 7.9 L Microbiology Microbiology Results: Microbiology 11/17/20 Unknown Urine Catheterized - Straight Catheter Urine Culture - Final Escherichia coli 11/17/20 17:05 Blood - Venous Blood Culture - Preliminary No growth after 24 hours. 11/17/20 16:26 Blood - Venous Blood Culture - Preliminary No growth after 24 hours.
[2020-11-19] MEDS: Nitrofurantoin Monohyd/M-Cryst 100 MG CAPSULE PO (18:26)
[2020-11-19] MEDS: Atorvastatin Calcium 10 MG TABLET PO (21:04)
[2020-11-19] MEDS: Gabapentin 100 MG CAPSULE PO (21:04)
[2020-11-19 23:28] VITALS: BP 119/62; PULSE 79; RESP 18; TEMP 36.3; O2SAT 98
--- NOTE | 2020-11-20 | MR_ITS ---
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 Lower extremity weakness. COMPARISON: Head CT 11/17/2020. TECHNIQUE: Multiplanar multisequence MR imaging of the brain was obtained without IV contrast. FINDINGS: Stable appearing intermediate T1 and dark T2 signal intensity material effacing the retrobulbar fat bilaterally as well as extensive T2 signal changes within the cerebellar white matter, brachium pontis, and gem bilaterally in keeping with the clinical history of Erdheim-[place] disease. Global cerebral and cerebellar volume loss again noted. Moderate chronic microangiopathy again noted. There is no hydrocephalus, extra-axial surface collection, or herniation. The major flow voids at the skull base are preserved. There is no acute infarct on diffusion-weighted imaging. There is no intracranial hemorrhage on the gradient recalled echo acquisition. The midline structures are normal. The cerebellar tonsils are normally positioned. The cerebellum and brainstem are normal. The craniocervical junction is normal. MR/MR head/brain wo con IMPRESSION: - No acute intracranial findings. No acute infarcts. Moderate chronic microangiopathy again noted. - Stable appearing intermediate T1 and dark T2 signal intensity material effacing the retrobulbar fat bilaterally as well as extensive T2 signal changes within the cerebellar white matter, brachium pontis, and gem bilaterally in keeping with the clinical history of Erdheim-Neno disease.
[2020-11-20] MEDS: Nitrofurantoin Monohyd/M-Cryst 100 MG CAPSULE PO ×2 (05:03→16:20)
[2020-11-20] MEDS: Enoxaparin Sodium 60 MG/0.6 ML SYRINGE SUBCUT ×2 (05:03→16:20)
[2020-11-20 07:07] VITALS: BP 154/80; PULSE 87; RESP 18; TEMP 36.3; O2SAT 99
[2020-11-20] MEDS: Cholecalciferol (Vitamin D3) 25 MCG TABLET 50 MCG PO (10:17)
[2020-11-20] MEDS: Omeprazole 20 MG CAPSULE.DR PO (10:17)
[2020-11-20] MEDS: 0.9 % Sodium Chloride Flush 3 ML SYRINGE IVFLUSH ×3 (10:17→23:57)
--- NOTE | 2020-11-20 11:09 | MHC.CM.PN ---
SNF REFERRALS TO CONTRACTED FACILITIES PLACED PER CONVERSATION WITH PATIENT. PER HOSPITALIST ROUNDS, PATIENT MAY NEED PICC PLACEMENT FOR ESBL IN URINE ALSO ANTICIPATE MRI PLAN IS DC BY Tuesday11/22/2020
[2020-11-20 11:22] VITALS: BP 136/64; PULSE 91; RESP 15; TEMP 36.3; O2SAT 99
--- NOTE | 2020-11-20 12:57 | MHC.CM.PN ---
PER CONVERSATION WITH PATIENT'S SPOUSE ([phone]), REFERRALS ADDED TO INCLUDE [facility] AND [facility]. CM FOLLOWING
--- NOTE | 2020-11-20 14:06 | HO.PM.IMPN ---
Subjective Subjective Date of Service: 11/21/20 Interval History: Generalized weakness, UTI Review of Systems Denies any chest pain or shortness of breath or abdominal pain or fever chills. Physical Exam Vital Signs: Vital Signs: Last Vital Signs Temp 97.3 F 11/20/20 11:22 Pulse 91 11/20/20 11:22 Resp 15 11/20/20 11:22 BP 136/64 11/20/20 11:22 Pulse Ox 99 11/20/20 11:22 Body Mass Index 23.0 Physical exam: Constitutional: Not in acute distress Cvs: rrr, [id number] , no murmur res: Fair air entry, no rales or wheezing. abd: no rebound or guarding ,nt, bs present. ext pulses present , no cyanosis neuro: axo3 , nonfocal. Objective Data Current Medications Generic Name Dose Route Start Last Admin Trade Name Freq PRN Reason Stop Dose Admin Acetaminophen 650 mg 11/17/20 20:58 11/19/20 16:41 Acetaminophen 325 Mg Tablet PO 650 mg Q6H PRN Administration Pain, Mild (Pain Scale 1-3) Atorvastatin Calcium 10 mg 11/18/20 21:00 11/19/20 21:04 Atorvastatin Calcium 10 Mg Tablet PO 10 mg BEDTIME LANEY Administration Diazepam 2 mg 11/17/20 21:49 Diazepam 2 Mg Tablet PO BEDTIME PRN Anxiety Enoxaparin Sodium 60 mg 11/18/20 05:00 11/20/20 05:03 Enoxaparin Sodium 60 Mg/0.6 Ml Syringe SUBCUT 60 mg BID@0500,1700 LANEY Administration Gabapentin 100 mg 11/18/20 21:00 11/19/20 21:04 Gabapentin 100 Mg Capsule PO 100 mg BEDTIME LANEY Administration Loperamide HCl 2 mg 11/17/20 21:49 Loperamide Hcl 2 Mg Capsule PO DAILY PRN Diarrhea Melatonin 3 mg 11/17/20 22:00 Melatonin 3 Mg Tablet PO BEDTIME PRN Insomnia Nitrofurantoin Macrocrystals 100 mg 11/19/20 17:00 11/20/20 05:03 Nitrofurantoin Monohyd/M-Cryst 100 Mg Capsule PO 100 mg Q12H LANEY Administration Non-Formulary Medication 10 mg 11/17/20 22:00 Dalfampridine PO Q12H LANEY Patient Own 240 each 11/18/20 13:00 11/20/20 10:16 Medication (Zelboraf PO 240 each 240 Mg Tablet) DAILY LNAEY Administration Patient Own 100 each 11/19/20 21:00 11/19/20 21:05 Medication (Kineret SUBCUT 100 each 100 Mg/0.67 Ml) BEDTIME LANEY Administration Omeprazole 20 mg 11/18/20 09:00 11/20/20 10:17 Omeprazole 20 Mg Capsule.Dr PO 20 mg DAILY LANEY Administration Ondansetron HCl 4 mg 11/17/20 20:58 Ondansetron Hcl 4 Mg/2 Ml Vial IVPUSH Q8H PRN Nausea and Vomiting Oxycodone HCl 5 mg 11/17/20 21:49 Oxycodone Hcl Immed Release 5 Mg Tablet PO Q4H PRN Pain Pharmacy Consult 1 each 11/17/20 19:41 Consult Rx Perform Med Rec MISCELLANE ONCE PRN Consult order Pharmacy Consult 1 each 11/17/20 20:10 Consult Rx Perform Med Rec MISCELLANE ONCE PRN Consult order Sodium Chloride 3 ml 11/18/20 00:00 11/20/20 10:17 0.9 % Sodium Chloride Flush 3 Ml Syringe IVFLUSH 3 ml QSHIFT LANEY Administration Vitamin D 50 mcg 11/18/20 09:00 11/20/20 10:17 Cholecalciferol (Vitamin D3) 25 Mcg Tablet PO 50 mcg DAILY LANEY Administration Labs CBC & Chem 7: 11/18/20 06:15 11/19/20 06:06 Microbiology Microbiology Results: Microbiology 11/17/20 17:05 Blood - Venous Blood Culture - Preliminary No growth after 48 hours. 11/17/20 16:26 Blood - Venous Blood Culture - Preliminary No growth after 48 hours. 11/17/20 Unknown Urine Catheterized - Straight Catheter Urine Culture - Final Escherichia coli Assessment and Plan (1) Urinary tract infection: Problem details: She has ESBL UTI She has mild dysuria,no pyelonephritis or toxicity Status: Acute Assessment and Plan: 69 year women admitted with resistant urinary tract infection. last ua culture: Grew Proteus mirabilis: Sensitive to ertapenem. 1. urinary tract infection: on patient on ertapenem, switched to po microbid. 2. Hyperlipidemia. Continue statin. 3. Hypertension. Continue propranolol. 4. GERD. Continue PPI. 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 neurology follow up (2) Weakness: Status: Acute
--- NOTE | 2020-11-20 14:42 | MHC.CM.PN ---
CALL RECEIVED FROM SPOUSE, MAINE ([phone]) SPOUSE CHOOSES [facility], NOW GOING FOR AUTH. HCP ON FILE AND UPLOADED. HOSPITALIST MADE AWARE.
--- NOTE | 2020-11-20 14:53 | MHC.CM.PN ---
IMM 11/20 IN CHART.
[2020-11-20 15:18] VITALS: BP 132/82; PULSE 92; RESP 18; TEMP 36.7; O2SAT 99
--- NOTE | 2020-11-20 15:45 | MHC.CM.PN ---
SPOUSE ([phone]) MAINE CALLED THIS TACK CUTTER TO EXPRESS HIS DISCONTENT THAT [facility] IS NOT OFFERING VISITATION TO SPOUSE. HE STATES THAT [facility] OFFERS VISITS CALL TO [facility] ADMISSIONS ([phone]) FINDS THAT ONLY END-OF-LIFE VISITATION IS ALLOWED, AND THAT IS FOLLOWED BY [facility]. MICHEAL JENKINS CALLED (PER REQUEST OF SPOUSE) [phone], WITH SAME ANSWER. SPOUSE VERBALIZES UNDERSTANDING AND SAYS WE WILL STICK WITH [facility] .
[2020-11-20] MEDS: oxyCODONE HCl Immed Release 5 MG TABLET PO (17:22)
[2020-11-20] MEDS: Gabapentin 100 MG CAPSULE PO (21:22)
[2020-11-20] MEDS: Atorvastatin Calcium 10 MG TABLET PO (21:22)
[2020-11-21 01:10] VITALS: BP 133/71; PULSE 97; RESP 18; TEMP 36.4; O2SAT 97
[2020-11-21] MEDS: Nitrofurantoin Monohyd/M-Cryst 100 MG CAPSULE PO (05:11)
[2020-11-21] MEDS: Enoxaparin Sodium 60 MG/0.6 ML SYRINGE SUBCUT (05:11)
[2020-11-21 08:00] VITALS: BP 142/68; PULSE 94; RESP 16; TEMP 35.9; O2SAT 98
[2020-11-21] MEDS: Propranolol HCL LA 80 MG CAP.SA.24H PO (08:27)
[2020-11-21] MEDS: Cholecalciferol (Vitamin D3) 25 MCG TABLET 50 MCG PO (08:27)
[2020-11-21] MEDS: Omeprazole 20 MG CAPSULE.DR PO (08:27)
[2020-11-21] MEDS: 0.9 % Sodium Chloride Flush 3 ML SYRINGE IVFLUSH (08:28)
--- NOTE | 2020-11-21 09:46 | P.PNIM_ITS ---
Subjective Subjective Date of Service: 11/21/20 Interval History: Still generalized weak, denies any chest pain or shortness of breath or urinary complaints Review of Systems uti Physical Exam Vital Signs: Vital Signs: Last Vital Signs Temp 96.7 F L 11/21/20 08:00 Pulse 94 11/21/20 08:00 Resp 16 11/21/20 08:00 BP 142/68 H 11/21/20 08:00 Pulse Ox 98 11/21/20 08:00 Body Mass Index 23.0 Physical exam: Constitutional: Not in acute distress Cvs: rrr, [id number] , no murmur res: Fair air entry, no rales or wheezing. abd: no rebound or guarding ,nt, bs present. ext pulses present , no cyanosis neuro: axo3 , nonfocal. Objective Data Current Medications Generic Name Dose Route Start Last Admin Trade Name Freq PRN Reason Stop Dose Admin Acetaminophen 650 mg 11/17/20 20:58 11/19/20 16:41 Acetaminophen 325 Mg Tablet PO 650 mg Q6H PRN Administration Pain, Mild (Pain Scale 1-3) Atorvastatin Calcium 10 mg 11/18/20 21:00 11/20/20 21:22 Atorvastatin Calcium 10 Mg Tablet PO 10 mg BEDTIME LANEY Administration Diazepam 2 mg 11/17/20 21:49 Diazepam 2 Mg Tablet PO BEDTIME PRN Anxiety Enoxaparin Sodium 60 mg 11/18/20 05:00 11/21/20 05:11 Enoxaparin Sodium 60 Mg/0.6 Ml Syringe SUBCUT 60 mg BID@0500,1700 LANEY Administration Gabapentin 100 mg 11/18/20 21:00 11/20/20 21:22 Gabapentin 100 Mg Capsule PO 100 mg BEDTIME LANEY Administration Loperamide HCl 2 mg 11/17/20 21:49 Loperamide Hcl 2 Mg Capsule PO DAILY PRN Diarrhea Melatonin 3 mg 11/17/20 22:00 Melatonin 3 Mg Tablet PO BEDTIME PRN Insomnia Nitrofurantoin Macrocrystals 100 mg 11/19/20 17:00 11/21/20 05:11 Nitrofurantoin Monohyd/M-Cryst 100 Mg Capsule PO 100 mg Q12H LANEY Administration Non-Formulary Medication 10 mg 11/17/20 22:00 Dalfampridine PO Q12H LANEY Patient Own 240 each 11/18/20 13:00 11/21/20 08:27 Medication (Zelboraf PO 240 each 240 Mg Tablet) DAILY LANEY Administration Patient Own 100 each 11/19/20 21:00 11/20/20 21:22 Medication (Kineret SUBCUT 100 each 100 Mg/0.67 Ml) BEDTIME LANEY Administration Omeprazole 20 mg 11/18/20 09:00 11/21/20 08:27 Omeprazole 20 Mg Capsule.Dr PO 20 mg DAILY LANEY Administration Ondansetron HCl 4 mg 11/17/20 20:58 Ondansetron Hcl 4 Mg/2 Ml Vial IVPUSH Q8H PRN Nausea and Vomiting Oxycodone HCl 5 mg 11/17/20 21:49 11/20/20 17:22 Oxycodone Hcl Immed Release 5 Mg Tablet PO 5 mg Q4H PRN Administration Pain Pharmacy Consult 1 each 11/17/20 19:41 Consult Rx Perform Med Rec MISCELLANE ONCE PRN Consult order Pharmacy Consult 1 each 11/17/20 20:10 Consult Rx Perform Med Rec MISCELLANE ONCE PRN Consult order Propranolol HCl 80 mg 11/21/20 09:00 11/21/20 08:27 Propranolol Hcl La 80 Mg Cap.Sa.24h PO 80 mg DAILY LANEY Administration Protocol Sodium Chloride 3 ml 11/18/20 00:00 11/21/20 08:28 0.9 % Sodium Chloride Flush 3 Ml Syringe IVFLUSH 3 ml QSHIFT LANEY Administration Vitamin D 50 mcg 11/18/20 09:00 11/21/20 08:27 Cholecalciferol (Vitamin D3) 25 Mcg Tablet PO 50 mcg DAILY LANEY Administration Labs CBC & Chem 7: 11/18/20 06:15 11/19/20 06:06 Microbiology Microbiology Results: Microbiology 11/17/20 17:05 Blood - Venous Blood Culture - Preliminary No growth after 48 hours. 11/17/20 16:26 Blood - Venous Blood Culture - Preliminary No growth after 48 hours. 11/17/20 Unknown Urine Catheterized - Straight Catheter Urine Culture - Final Escherichia coli Assessment and Plan (1) Urinary tract infection: Status: Acute Assessment and Plan: 69 year women admitted with resistant urinary tract infection. last ua culture: Grew Proteus mirabilis: Sensitive to ertapenem. 1. urinary tract infection: on patient on ertapenem, cont po microbid day01/04. 2. Hyperlipidemia. Continue statin. 3. Hypertension. Continue propranolol. 4. GERD. Continue PPI. 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 Patient is on anakinra and zelboraf - still has p rogressive weakness for 3-4 weeks : neurology recomended mri-Stable appearing intermediate T1 and dark T2 signal intensity material effacing the retrobulbar fat bilaterally as well as extensive T2 signal changes within the cerebellar white matter, brachium pontis, and gem bilaterally in keeping with the clinical history of Erdheim-[place] disease. neurology follow up-continue above management. (2) Weakness: Status: Acute
--- NOTE | 2020-11-21 11:21 | MHC.CM.PN ---
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 CALED TO PATIENT MAINE TO INFORM HIM OF THE DISCHARGE TODAY WITH HIS APPROVAL;L AND PATIENTS . DISCHARGE PLAN TRANSFER [facility]IA [facility] TO [facility] SOON THE RAP[ID COVID TESTS COME IN. I SPOKE WITH MAINE AND HE INFORMED ME THAT THE HOSPITAL HAS HER NON FORMULARY MEDICATIONS AND THAT THE INJECTIONS NEED TO BE KEPT IN COOLER. INFORMED PATIENT . NURASING STAFF ,GAME ADVISOR AND HOSPITALIST OF THE DISPOSITION AND ROUTE AND TIME OF TRANSPORT
--- NOTE | 2020-11-21 11:45 | PM.DS ---
DS: Providers Provider Date of admission: 11/17/20 19:41 Primary care physician: Vincent He Consults: 11/18/20 15:13 Consult to Infectious Diseases Routine Consulting Provider: Swati Trejo Reason for consultation: uti -? esbl 11/19/20 08:43 Consult to Neurology Routine Consulting Provider: [facility] Reason for consultation: b/l leg weakness Has provider been notified: No DS: Diagnosis Discharge Diagnosis (1) Urinary tract infection: Status: Acute (2) Weakness: Status: Acute DS: Medications Discharge Medications Home Medications: Home Medications Medication Instructions Recorded Confirmed anakinra 100 mg SUBCUT DAILY 08/29/20 11/17/20 cholecalciferol (vitamin D3) 1 tab PO DAILY 08/29/20 11/17/20 dalfampridine 10 mg PO Q12H 08/29/20 11/17/20 diazepam 2 mg PO BEDTIME PRN 08/29/20 11/17/20 gabapentin 100 mg PO BEDTIME 08/29/20 11/17/20 loperamide 1 cap PO DAILY PRN 08/29/20 11/17/20 melatonin 5 mg PO BEDTIME PRN 08/29/20 11/17/20 omeprazole 1 cap PO DAILY 08/29/20 11/17/20 ondansetron 8 mg PO Q8H 08/29/20 11/17/20 oxycodone 1 tab PO Q4H PRN 08/29/20 11/17/20 propranolol 80 mg PO DAILY 08/29/20 11/17/20 simvastatin 1 tab PO BEDTIME 08/29/20 11/17/20 vemurafenib [Zelboraf] 240 mg PO DAILY 08/29/20 11/17/20 enoxaparin 60 mg SUBCUT BID@0500,1700 11/17/20 11/17/20 DS: Summary Hospital Course Hospital Course: 70-year-old woman presented with complaints of 2 weeks of increased weakness. Patient reports that she has even had difficulty just walking. She was recently diagnosed with bilateral DVTs. She does have some noted right lower extremity swelling. She is on Lovenox 60 mg b.i.d. She lives at home with her . She does have a history of UTIs in the past and a history of uterine cancer and brain cancer. She denied chest pain, shortness of breath, nausea, vomiting, diarrhea, fever. She did report some chills, but denied any dysuria or abdominal pain. Labs all within acceptable limits. Urinalysis was positive. COVID negative. Her vital signs stable with no fever. She was given a dose of Levaquin in the ER and 1 dose of therapeutic Lovenox that she had not had any today. She will be admitted for further management and treatment of weakness secondary to urinary tract infection. PAST MEDICAL HISTORY: 1. History of Erdheim-Letcher disease. 2. Vertigo. 3. Hypertension. 4. Osteoporosis. 5. Endometrial cancer. 6. Hysterectomy. Hospital Course problem garcia section: Patient came with UTI and generalized weakness: Patient was started on IV antibiotics ertapenem and urine culture and blood culture sent-subsequently patient improved and seen by infectious disease-patient was switched to p.o. nitrofurantoin on discharge. In addition patient also has Erdheim-Letcher disease: Brain MRI repeated, and seen by Neurology-continue current management and follow-up outpatient with Neurology. Pt evaluated -recomended rehab , covid for rehab placement-negative. Above management discussed with the patient in detail length she understand and in agreement with the above plan, time spent 50 minutes and 50% time spent on counseling. Significant findings: As above. Procedures performed: None. Treatment and response: As above. Complications: None. Time Spent with Patient Time attestation: Total time spent providing and/or coordinating discharge services: Physical Exam Vital Signs: Vital Signs: Last Vital Signs Temp 96.7 F L 11/21/20 08:00 Pulse 94 11/21/20 08:00 Resp 16 11/21/20 08:00 BP 142/68 H 11/21/20 08:00 Pulse Ox 98 11/21/20 08:00 Body Mass Index 23.0 Physical exam: Constitutional: Not in acute distress Cvs: rrr, [id number] , no murmur res: Fair air entry, no rales or wheezing. abd: no rebound or guarding ,nt, bs present. ext pulses present , no cyanosis neuro: axo3 , nonfocal. DS: Data Data Completed and Pending Labs on day of discharge: 11/17/20 ECG 12 lead EKG Stat Add Laboratory Test Stat Urine Culture Routine 11/17/20 Breakfast Low Sodium Diet 11/17/20 14:47 CT head/brain wo con Stat XR chest 2V Stat 0.9 % Sodium Chloride [Ns] 1,000 ml IV 999 mls/hr 11/17/20 16:26 Comprehensive Met. Panel Stat 11/17/20 16:39 EKG Documentation DIRECTED 11/17/20 17:05 Complete Blood Count Auto Diff Stat Lactic Acid Stat Troponin-I High Sensitivity Stat 11/17/20 18:00 0.9 % Sodium Chloride [Ns] 1,000 ml IV 999 mls/hr levoFLOXacin/D5W [Levaquin] 750 mg in 150 ml IV ONCE 11/17/20 18:18 SARS-CoV2/FLU/RSV Stat 11/17/20 18:39 Enoxaparin Sodium [Lovenox] 60 mg SUBCUT ONCE ONE 11/17/20 19:39 Transfer Order Routine 11/17/20 21:00 cefTRIAXone sodium [Rocephin] 1 gm 0.9 % Sodium Chloride [Ns] 50 ml IV Q24H 11/17/20 21:12 cefTRIAXone sodium [Rocephin] 1 gm .ROUTE .STK-MED ONE 11/17/20 22:12 Complete Blood Count no Diff Stat Partial Thromboplastin Time Stat Prothrombin Time INR Stat 11/18/20 06:00 Enoxaparin Sodium [Lovenox] 60 mg SUBCUT Q12H 11/18/20 06:14 Basic Metabolic Panel DAILY@0600 Prothrombin Time INR DAILY@0600 11/18/20 06:15 Complete Blood Count Auto Diff DAILY@0600 11/18/20 08:00 Dextrose 5 % [D5w] 1,000 ml IVCONT 50 mls/hr 11/18/20 12:45 vemurafenib [Zelboraf] 240 mg PO DAILY 11/18/20 13:00 Patient Own Medication 100 each SUBCUT DAILY 11/18/20 15:08 Sodium Routine 11/18/20 16:00 Ertapenem Sodium [INVanz] 1 gm 0.9 % Sodium Chloride [Ns] 50 ml IV DAILY 11/18/20 16:39 Ertapenem Sodium [INVanz] 1 gm .ROUTE .STK-MED ONE 11/18/20 21:55 Prothrombin Time INR Routine 11/19/20 06:06 Basic Metabolic Panel DAILY@0600 11/19/20 09:22 Ertapenem Sodium [INVanz] 1 gm .ROUTE .STK-MED ONE 11/20/20 MR head/brain wo con Urgent Laboratory Last Values WBC 5.9 X10*3/uL (4.8-10.8) 11/18/20 06:15 RBC 4.75 X10*6/uL (4.20-5.50) 11/18/20 06:15 Hgb 12.2 g/dl (12.0-16.0) 11/18/20 06:15 Hct 39.6 % (37-47) 11/18/20 06:15 MCV 83.4 fL (80-98) 11/18/20 06:15 MCH 25.7 pg (27.0-33.0) L 11/18/20 06:15 MCHC 30.8 g/dl (31.0-35.0) L 11/18/20 06:15 RDW 17.7 % (11.0-16.0) H 11/18/20 06:15 Plt Count 277 X10*3/uL (160-400) 11/18/20 06:15 MPV 9.7 fL (9.4-12.3) 11/18/20 06:15 Immature Gran % (Auto) 0.7 % (0.0-0.4) H 11/18/20 06:15 Neut % (Auto) 65.6 % (45-73) 11/18/20 06:15 Lymph % (Auto) 14.9 % (20-40) L 11/18/20 06:15 [place] % (Auto) 13.8 % (2-11) H 11/18/20 06:15 Eos % (Auto) 4.2 % (0-4) H 11/18/20 06:15 Baso % (Auto) 0.8 % (0-2) 11/18/20 06:15 Lymph # (Auto) 0.9 X10*3/uL (1.2-4.9) L 11/18/20 06:15 [place] # (Auto) 0.8 X10*3/uL (0.1-1.2) 11/18/20 06:15 Eos # (Auto) 0.3 X10*3/uL (0.0-0.4) 11/18/20 06:15 Baso # (Auto) 0.1 X10*3/uL (0.0-0.2) 11/18/20 06:15 Abs Immat Gran (auto) 0.04 X10*3/uL (0.00-0.03) H 11/18/20 06:15 Absolute Neuts (auto) 3.9 X10*3/uL (2.0-8.3) 11/18/20 06:15 Absolute Nucleated RBC 0.000 X10*3/uL (0.0-0.012) 11/18/20 06:15 Nucleated RBC % (auto) 0.0 /100WBC (0.0-0.2) 11/18/20 06:15 PT 12.0 SEC (10.8-13.0) 11/18/20 21:55 INR 1.0 (0.9-1.1) 11/18/20 21:55 APTT 40.1 SEC (24.1-38.0) H 11/17/20 22:12 Sodium 141 mmol/L (135-145) 11/19/20 06:06 Potassium 4.8 mmol/l (3.3-5.1) 11/19/20 06:06 Chloride 112 mmol/L (96-108) H 11/19/20 06:06 Carbon Dioxide 20 mmol/L (22-29) L 11/19/20 06:06 Anion Gap 14 (12-20) 11/19/20 06:06 BUN 11 mg/dL (9-16) 11/19/20 06:06 Creatinine 0.83 mg/dL (0.5-1.4) 11/19/20 06:06 Estim Creat Clear Calc 53.6 11/19/20 06:06 Estimated GFR > 60 11/19/20 06:06 Random Glucose 79 mg/dL (60-115) 11/19/20 06:06 Lactic Acid 1.5 mmol/L (0.5-2.0) 11/17/20 17:05 Calcium 7.9 mg/dL (8.4-10.2) L 11/19/20 06:06 Total Bilirubin 0.5 mg/dL (0.0-1.0) 11/17/20 16:26 AST 34 U/L (5-31) H D 11/17/20 16:26 ALT 26 U/L (0-31) 11/17/20 16:26 Alkaline Phosphatase 189 U/L (39-117) H D 11/17/20 16:26 Troponin I High Sens 5.2 ng/L (<3.5-17.0) 11/17/20 17:05 Total Protein 5.6 g/dL (6.5-8.0) L 11/17/20 16:26 Albumin 2.1 g/dL (3.5-5.0) L 11/17/20 16:26 Urine Color STRAW 11/17/20 17:16 Urine Appearance CLOUDY 11/17/20 17:16 Urine pH 6.0 (5.0-8.0) 11/17/20 17:16 Ur Specific [place] <= 1.005 (1.005-1.025) 11/17/20 17:16 Urine Protein NEG MG/DL (NEG-TRACE) 11/17/20 17:16 Urine Glucose (UA) NEG MG/DL (NEG) 11/17/20 17:16 Urine Ketones NEG MG/DL (NEG) 11/17/20 17:16 Urine Blood 2+ (NEG) H 11/17/20 17:16 Urine Nitrite POS (NEG) H 11/17/20 17:16 Ur Leukocyte Esterase 3+ (NEG) H 11/17/20 17:16 Urine RBC 5-9 /HPF (0) H 11/17/20 17:16 Urine WBC TNTC /HPF (0-4) H 11/17/20 17:16 Ur Squamous Epith Cells NONE /LPF 11/17/20 17:16 Calcium Oxalate Crystal TRACE /LPF 11/17/20 17:16 Urine Bacteria 4+ /LPF 11/17/20 17:16 Coronavirus (PCR) NEGATIVE (Negative) 11/17/20 18:18 Influenza Type A (PCR) NEGATIVE (Negative) 11/17/20 18:18 Influenza Type B (PCR) NEGATIVE (Negative) 11/17/20 18:18 RSV RNA Qual (PCR) NEGATIVE (Negative) 11/17/20 18:18 Preliminary micro results at discharge 11/17/20 17:05 Blood Culture - Preliminary Blood - Venous No growth after 48 hours. 11/17/20 16:26 Blood Culture - Preliminary Blood - Venous No growth after 48 hours. Discharge Plan Discharge Patient Disposition: Xfer SNF [facility]Other[facility] ([facility] to [facility]) [facility] [Other] ([facility] to [facility] for str today ) Vincent He MD [Primary Care Provider] - Discharge Medications: New nitrofurantoin monohyd/m-cryst [Macrobid] 100 mg capsule 100 mg PO BID Qty: 26 RF: 0 Continued loperamide 2 mg capsule 1 cap PO DAILY PRN (Reason: Diarrhea) RF: 0 simvastatin 20 mg tablet 1 tab PO BEDTIME RF: 0 omeprazole 20 mg capsule,delayed release(DR/EC) 1 cap PO DAILY RF: 0 anakinra 100 mg/0.67 mL Syringe 100 mg SUBCUT DAILY RF: 0 oxycodone 5 mg tablet 1 tab PO Q4H PRN (Reason: Pain) RF: 0 melatonin 5 mg Tablet 5 mg PO BEDTIME PRN (Reason: Insomnia) RF: 0 cholecalciferol (vitamin D3) 50 mcg (2,000 unit) tablet 1 tab PO DAILY RF: 0 Zelboraf 240 mg tablet 240 mg PO DAILY RF: 0 ondansetron 8 mg Tablet,Disintegrating 8 mg PO Q8H RF: 0 diazepam 2 mg Tablet 2 mg PO BEDTIME PRN (Reason: Anxiety) RF: 0 propranolol 80 mg Capsule,Extended Release 24 Hr 80 mg PO DAILY RF: 0 gabapentin 100 mg Tablet 100 mg PO BEDTIME RF: 0 dalfampridine 10 mg Tablet Extended Release 12 Hr 10 mg PO Q12H RF: 0 enoxaparin 60 mg/0.6 mL syringe 60 mg subcut BID@0500,1700 RF: 0 Discharge Orders: Discharge Order (Routine); Ordered 11/21/20 Ordered By: Nita Kaba Diet: advance to usual diet Activity on Discharge: As tolerated Discharge Date/Time: 11/21/20 13:43 Visit Report Forms: Patient Portal Discharge page Care Plan Goals: Patient came with UTI and generalized weakness: Patient was started on IV antibiotics ertapenem and urine culture and blood culture sent-subsequently patient improved and seen by infectious disease-patient was switched to p.o. nitrofurantoin on discharge. In addition patient also has Erdheim-Letcher disease: Brain MRI repeated, and seen by Neurology-continue current management and subsequent outpatient follow-up with Neurology Health Concerns: As above. Plan of Treatment: As above.
[2020-11-21 12:04] VITALS: BP 142/68; PULSE 81; RESP 16; TEMP 35.7; O2SAT 99
[2020-11-21 13:01] LABS: COVID-19 Test Negative (Negative); IDNOW Serial# 9DD0AD1C
== END 2020-11-21 13:43 | disposition skilled nursing facility (03) | DRG 690 ==
LOC: HO.ED 18:43 → HO.S3 20:03
PROVIDERS: Nurse Practitioner Acute Care; Admitting Provider Hospitalist; Emergency Provider Emergency Medicine Emergency Medical Services; PCP Internal Medicine Medical Oncology; Visit Provider Internal Medicine
DX: N39.0 Urinary tract infection, site not specified (principal); E78.5 Hyperlipidemia, unspecified; K21.9 Gastro-esophageal reflux disease without esophagitis; E88.89 Other specified metabolic disorders; Z20.828 Contact with and (suspected) exposure to other viral communicable diseases; Z85.42 Personal history of malignant neoplasm of other parts of uterus; Z88.2 Allergy status to sulfonamides; Z88.5 Allergy status to narcotic agent; Z79.891 Long term (current) use of opiate analgesic; Z79.899 Other long term (current) drug therapy
CPT/HCPCS: 0241U; 36415; 70450; 70551; 71046; 80048; 80053; 81001; 83605; 84295; 84484; 85025; 85027; 85610; 85730; 87040; 87086; 87088; 87186; 87635; 93005; 96361; 96365; 96366; 96372; 97162; 97530; 99285; J0696; J1335; J1650; J1956

== ENCOUNTER → 2024-07-18 13:59 | Outpatient (RCR) | payer MEDICARE, SELFPAY ==
[2020-08-28 09:13] LABS: MANUAL DIFF FLAG NO
[2020-08-28 09:22] LABS: Basophils Absolute Auto 0.1 X10*3/uL (0.0-0.2); Basophils Percent Auto 1.6 % (0-2); Eosinophils Absolute Auto 0.2 X10*3/uL (0.0-0.4); Eosinophils Percent Auto 2.8 % (0-4); Hematocrit 38.5 % (37-47); Hemoglobin 12.3 g/dl (12.0-16.0); Imm Gran Abs Auto 0.02 X10*3/uL (0.00-0.03); Imm Gran Pct Auto 0.3 % (0.0-0.4); Lymphocytes Absolute Auto 0.8 X10*3/uL (1.2-4.9); Lymphocytes Percent Auto 14.4 % (20-40); Mean Corpuscular HGB Conc 31.9 g/dl (31.0-35.0); Mean Corpuscular Hemoglobin 27.7 pg (27.0-33.0); Mean Corpuscular Volume 86.7 fL (80-98); Mean Platelet Volume 9.7 fL (9.4-12.3); Monocytes Absolute Auto 0.5 X10*3/uL (0.1-1.2); Monocytes Percent Auto 8.9 % (2-11); Neutrophils Absolute Auto 4.1 X10*3/uL (2.0-8.3); Platelet Count 319 X10*3/uL (160-400); Red Blood Count 4.44 X10*6/uL (4.20-5.50); Red Cell Distribution Width 15.1 % (11.0-16.0); White Blood Count 5.8 X10*3/uL (4.8-10.8)
--- NOTE | 2020-08-28 09:23 | MHC.HEMONC ---
pt here for labs prior to chemo tomorrow. She is doing well and offered no c/o.
[2020-08-28 10:20] LABS: Alanine Aminotransferase 9 U/L (0-31); Albumin Level 4.3 g/dL (3.5-5.0); Alkaline Phosphatase 97 U/L (39-117); Anion Gap 17 (12-20); Aspartate Amino Transferase 12 U/L (5-31); Bilirubin Total 0.5 mg/dL (0.0-1.0); Blood Urea Nitrogen 14 mg/dL (9-16); Calcium 9.7 mg/dL (8.4-10.2); Carbon Dioxide 24 mmol/L (22-29); Chloride 108 mmol/L (96-108); Estimated Glomerular Filt Rate > 60; Glucose Random 93 mg/dL (60-115); Potassium 4.5 mmol/l (3.3-5.1); Sodium 144 mmol/L (135-145); Total Protein 6.7 g/dL (6.5-8.0)
--- NOTE | 2020-08-28 12:42 | MHC.HEMONCSW ---
PT TO BEGIN CHEMOTHERAPY TOMORROW. REPORTS COPING WELL. PRESENT HE ALWAYS ACCOMPANIES HER. DENIES ANY STRESSORS. SUPPORTIVE COUNSELING AVAILABLE.
[2020-08-29 10:20] VITALS: BP 128/76; PULSE 75; RESP 18; TEMP 36.3; O2SAT 98; BMI 26.2
[2020-08-29] MEDS: ondansetron HCL/NS 16 MG/50 ML PIGGYBACK 200 MG IV (11:03)
[2020-08-29] MEDS: dexAMETHasone sod phosphate/NS 12 MG/50 ML PIGGYBACK 100 MG IV (11:15)
[2020-08-29] MEDS: Fosaprepitant Dimeglumine 150 MG in 0.9 % Sodium Chloride 150 ML 310 MG IV (11:45)
[2020-08-29] MEDS: Heparin Sodium,Porcine Flush 500 UNIT/5 ML SYRINGE IVFLUSH (13:47)
[2020-08-29] MEDS: Pegfilgrastim Onpro 6 MG/0.6 ML SYR.W..INJ SUBCUT (13:48)
--- NOTE | 2020-08-29 14:11 | MHC.HEMONC ---
pt here for chemo. Labs from yesterday reviewed and WNL. Pt tolerated chemo well. Pt seen by Dr He and recent CT reviewed. Dr He to review in Radiology and see if pt will continue with current plan. Pt left with neulasta OnBody intact and activated on left upper arm.
--- NOTE | 2020-08-29 16:21 | PM.HEMONCPN ---
Medical Summary - Medical Summary Chief complaint: Follow-up for recurrent endometrial carcinoma. Medical Summary: DIAGNOSIS: 1. Erdheim-Tucker DISEASE. 2. 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 Depth of invasion:90%. Lymphatic Invasion: present. Blood vessel invasion:present. Stage: pT1b, pN0. Now with locally recurrent endometrial cancer. CURRENT THERAPY: VEMURAFANIB. ANAKINRA. Chemotherapy with Carboplatin/Taxol, weekly, completed 24 weeks of therapy, on May 18 2018. Completed radiation therapy to pelvis. Had brachytherapy completed August 02, in [place]. Now with recurrent endometrial cancer. Started DOXIL February 28. Here for cycle 7. Interval History Interval history: This is a pleasant 70-year-old lady here to receive her treatment. she has been doing fairly well however, her main complaint is her bowels. she gets trouble with constipation but then it alternates with diarrhea. her was giving her 1 mg of Imodium for a while and that appeared to be working well she was going to the bathroom regularly. however then she developed diarrhea again. her appetite has not been that good. she would eat only half a bagel for breakfast. She has noticed so much improvement in her functional status. She is able to sit on her own, ambulate with the help of a walker. She is excited. the physical therapist is happy. Energy level has improved. She denies fever nor chills. No chest pain or trouble breathing. Denies abdominal pain nausea vomiting heartburn indigestion. Bowels are rather irregular. Appetite is fair. She has lost some weight. She is in good spirits. Rest of the review of systems is unremarkable. Review of Systems - Constitutional Reports no additional constitutional complaints, Reports fatigue - Eyes Reports no additional eye complaints - ENT Reports no additional ear, nose, mouth, and throat complaints - Cardiovascular Reports no additional cardiovascular complaints - Respiratory Reports no additional respiratory complaints - Gastrointestinal Reports no additional gastrointestinal complaints, Reports change in stools, Reports constipation, Reports diarrhea - Musculoskeletal Reports no additional musculoskeletal complaints - Integumentary/Breasts Skin/Breast: Reports no additional skin complaints - Psychiatric Reports no additional psychiatric complaints - Endocrine Reports no additional endocrine complaints [facility] Medical History: Medical History (Last Updated 08/29/20 @ 10:07 by Arlene Mckay RN) Erdheim-Neno disease Home Medications and Allergies Current Medications: Current Medications Generic Name Dose Route Start Last Admin Trade Name Stephanie PRN Reason Stop Dose Admin Heparin Sodium (Porcine) 500 unit 08/29/20 00:00 08/29/20 13:47 Heparin Sodium,Porcine Flush 500 Unit/5 Ml Syringe IVFLUSH 08/29/20 23:59 500 unit ONCE LANEY Administration Ondansetron HCl 16 mg in 50 mls @ 200 mls/hr 08/29/20 00:00 08/29/20 11:14 Zofran IV 08/29/20 23:59 Infused ONCE LANEY Infusion Dexamethasone Sodium Phosphate 12 mg in 50 mls @ 100 mls/hr 08/29/20 00:00 08/29/20 11:44 Decadron IV 08/29/20 23:59 Infused ONCE LANEY Infusion Doxorubicin HCl Liposome 50 mg 275 mls @ 275 mls/hr 08/29/20 00:00 08/29/20 13:47 / Dextrose IV 08/29/20 23:59 Infused ONCE LANEY Infusion Fosaprepitant 150 mg/ Sodium 155 mls @ 310 mls/hr 08/29/20 11:00 08/29/20 12:16 Chloride IV 08/29/20 23:59 Infused ONCE LANEY Infusion Pegfilgrastim 6 mg 08/29/20 00:00 08/29/20 13:48 Pegfilgrastim Onpro 6 Mg/0.6 Ml Syr.W..Inj SUBCUT 08/29/20 23:59 6 mg ONCE LANEY Administration Home Medications Medication Instructions Recorded Confirmed Type anakinra 100 mg SUBCUT DAILY 08/29/20 08/29/20 History cholecalciferol (vitamin D3) 1 tab PO DAILY 08/29/20 08/29/20 History dalfampridine 10 mg PO Q12H 08/29/20 08/29/20 History diazepam 2 mg PO BEDTIME PRN 08/29/20 08/29/20 History gabapentin 100 mg PO BEDTIME 08/29/20 08/29/20 History loperamide 1 cap PO DAILY PRN 08/29/20 08/29/20 History melatonin 5 mg PO BEDTIME PRN 08/29/20 08/29/20 History omeprazole 1 cap PO DAILY 08/29/20 08/29/20 History ondansetron 8 mg PO Q8H 08/29/20 08/29/20 History oxycodone 1 tab PO Q4H PRN 08/29/20 08/29/20 History propranolol 80 mg PO DAILY 08/29/20 08/29/20 History simvastatin 1 tab PO BEDTIME 08/29/20 08/29/20 History vemurafenib [Zelboraf] 240 mg PO DAILY 08/29/20 08/29/20 History Allergies Allergy/AdvReac Type Severity Reaction Status Date / Time Sulfa (Sulfonamide Allergy Intermediate NAUSEA/DRY Verified 08/29/20 10:07 Antibiotics) HEAVES [SULFA (SULFONAMIDE ANTIBIOTICS)] codeine [CODEINE] Allergy Unknown VOMITING Verified 08/29/20 10:07 Exam Vital signs: Vital Signs Temp 97.4 F 08/29/20 10:20 Pulse 75 08/29/20 10:20 Resp 18 08/29/20 10:20 BP 128/76 08/29/20 10:20 Pulse Ox 98 08/29/20 10:20 Intake & Output 08/28/20 08/29/20 08/29/20 18:59 06:59 18:59 Intake Total 530 / 530 Balance 530 / 530 Intake: Intake, IV Amount 530 / 530 DOXOrubicin HCl PEG-Liposomal 275 / 275 50 mg In Dextrose 5 % 250 ml @ 275 mls/hr IV ONCE LANEY Rx#: [id number] Fosaprepitant Dimeglumine 150 155 / 155 mg In 0.9 % Sodium Chloride 150 ml @ 310 mls/hr IV ONCE LANEY Rx #:[id number] dexAMETHasone sod phosphate/NS 50 / 50 12 mg In 50 ml @ 100 mls/hr IV ONCE LANEY Rx#:[id number] ondansetron HCL/NS 16 mg In 50 50 / 50 ml @ 200 mls/hr IV ONCE LANEY Rx# :[id number] Other: Weight 62.3 kg 60.951 kg Weight 60.951 kg Body Mass Index 26.2 - Constitutional Present: no acute distress - Routine HEENT Exam Head: Present: normal inspection ENT: Present: mucous membranes moist - Routine Neck Exam Present: full ROM - Routine Abdominal Exam Present: soft, nontender - Routine Rectal Exam Patient deferred: visual exam, digital exam - Routine Extremities Exam Present: nontender - Routine Neurological Exam Present: alert, oriented X3 - Detailed Neurological Exam: Coma Scale Eye Opening: Spontaneous (4) - Routine Psychiatric Exam Present: normal affect Data - Labs CBC & Chem 7: 08/28/20 08:45 08/28/20 09:00 Progress Note: A/P (1) Endometrial cancer Status: Acute Assessment and plan: 70 year old lady with Erdheim Tucker Disease. She had had a skin biopsy of the lesions and it was consistent with Erdheim Tucker disease. She had been on Vemurafanib, and Anakinra, they appear to be working. Her last CAT scans of chest abdomen and pelvis, as well as MRI of the brain had reveal Improved disease. 2. She had a laparoscopic HERNAN/BSO on 08/15/18, for diagnosis of Endometrial Carcinoma. I had started her on adjuvant chemotherapy, for the endometrial carcinoma. She completed 6 months of therapy on May 18. She tolerated it well, considering. I picked the low dose weekly regimen to avoid significant systemic toxicities, especially since she has the underlying neurological illness, as well. l proceeded with a set of CAT scans which were done on May 31 and revealed: There is amorphous tissue surrounding aorta and the central portion of the visceral branches. 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 Probable bilateral pelvic lymphoceles. No measurable adenopathy or evidence of recurrent uterine cancer. Micronodules in the lungs are unchanged. She has been followed by Dr. Dick, from [facility]. She was noted to have a local recurrence of her endometrial cancer. She completed the 2nd phase of her radiation therapy with implants, August 02. 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 She was treated with Steroids, which were tapered. She had an echocardiogram which raise concern for left atrial mass. I discussed with Dr. Whitfield, he did not feel strongly about the EUNICE. She now has disease recurrence in the pelvic area. Her who is her primary caregiver, is very supportive. He is willing and available to provide assistance with ADLs, the wheelchair, ETC. She was started on Doxil as the next agent in line, for endometrial carcinoma. In view of her age and comorbidities l started her at the dose of 30 milligram/meter squared, rather than 40 mg/m2, to see how she would tolerate it. She was started on it on February 28. Repeat Imaging after 3 cycles, from May 12 revealed: 1. No metastatic disease. Small stable nodule right middle lobe under 4 mm. 2. No adenopathy or effusion. 3. Thickening aortic arch with irregularity lumen, stable from prior CT 2019. CT abdomen and pelvis: 1. Peritoneal carcinomatosis stable to borderline decreased. No interval ascites. 2. Loculated fluid collection deep left pelvis adjacent to sigmoid and extending to the vaginal cuff borderline increased. No bowel obstruction or focal bowel inflammatory changes. 3. Probable small hepatic cyst stable. Small cystic lesion spleen stable. CT scan of the abdomen from 08/18 revealed: Multiple mesenteric lymph nodes in the right lower quadrant increased compared to the scan from April PLAN: I will review this CT scan with the radiologist for further review. I will also discuss the case with Dr. Barton. She is here to start cycle 7. She has history of neutropenia, and with her immuno suppression from her underlying disease and Immunotherapy, she is at high risk for neutropenic sepsis. As such she will continue on the Neulasta support. She will continue on her immunotherapy, for her Erdheim Tucker syndrome. She has a follow up visit with Dr. Barton, coming up in a couple of weeks. She will return in about one month for a followup visit. Thanks, Please send a copy to: Dr. Amelia Bustos. Dr. Encinas in [place]. Dr. Carrol Brock, [facility]. - Time Spent With Patient Total time spent is greater than 50% in coordination of care (as documented) at patient's floor/unit and/or counseling patient: 25 - 35 minutes
--- NOTE | 2020-08-29 16:26 | MHC.HEMONCSW ---
RECEIVED CHEMOTHERAPY TODAY. SUPPORTIVE COUNSELING PROVIDED.
[2020-08-29 17:52] LABS: CA-125 208 U/mL (<35)
[2020-09-12 12:05] LABS: Basophils Absolute Auto 0.1 X10*3/uL (0.0-0.2); Basophils Percent Auto 1.6 % (0-2); Eosinophils Absolute Auto 0.1 X10*3/uL (0.0-0.4); Eosinophils Percent Auto 2.4 % (0-4); Hematocrit 38.8 % (37-47); Hemoglobin 12.1 g/dl (12.0-16.0); Imm Gran Abs Auto 0.04 X10*3/uL (0.00-0.03); Imm Gran Pct Auto 0.8 % (0.0-0.4); Lymphocytes Absolute Auto 0.6 X10*3/uL (1.2-4.9); Lymphocytes Percent Auto 12.3 % (20-40); MANUAL DIFF FLAG SCAN; Mean Corpuscular HGB Conc 31.2 g/dl (31.0-35.0); Mean Corpuscular Hemoglobin 27.4 pg (27.0-33.0); Mean Corpuscular Volume 87.8 fL (80-98); Mean Platelet Volume 9.7 fL (9.4-12.3); Monocytes Absolute Auto 0.3 X10*3/uL (0.1-1.2); Monocytes Percent Auto 5.7 % (2-11); Neutrophils Absolute Auto 3.9 X10*3/uL (2.0-8.3); Neutrophils Percent Auto 77.2 % (45-73); Platelet Count 278 X10*3/uL (160-400); Red Blood Count 4.42 X10*6/uL (4.20-5.50); SCAN SMEAR FLAG 1; White Blood Count 5.1 X10*3/uL (4.8-10.8)
[2020-09-12 12:43] LABS: Alanine Aminotransferase 12 U/L (0-31); Albumin Level 4.1 g/dL (3.5-5.0); Alkaline Phosphatase 125 U/L (39-117); Anion Gap 16 (12-20); Aspartate Amino Transferase 16 U/L (5-31); Bilirubin Total 0.3 mg/dL (0.0-1.0); Blood Urea Nitrogen 9 mg/dL (9-16); Calcium 9.4 mg/dL (8.4-10.2); Carbon Dioxide 23 mmol/L (22-29); Chloride 109 mmol/L (96-108); Creatinine Clr Calc Pharmacy 52.6; Estimated Glomerular Filt Rate > 60; Glucose Random 95 mg/dL (60-115); Potassium 4.5 mmol/l (3.3-5.1); Sodium 143 mmol/L (135-145); Total Protein 6.7 g/dL (6.5-8.0)
[2020-09-12 13:03] LABS: SLIDE REVIEW VERIFIED
[2020-09-15 14:04] VITALS: BP 134/62; PULSE 69; RESP 18; TEMP 36.4; O2SAT 98
[2020-09-15 14:34] LABS: Basophils Absolute Auto 0.1 X10*3/uL (0.0-0.2); Basophils Percent Auto 1.1 % (0-2); Eosinophils Absolute Auto 0.1 X10*3/uL (0.0-0.4); Eosinophils Percent Auto 2.4 % (0-4); Hematocrit 36.4 % (37-47); Hemoglobin 11.4 g/dl (12.0-16.0); Imm Gran Abs Auto 0.06 X10*3/uL (0.00-0.03); Imm Gran Pct Auto 1.1 % (0.0-0.4); Lymphocytes Absolute Auto 0.4 X10*3/uL (1.2-4.9); Lymphocytes Percent Auto 6.7 % (20-40); MANUAL DIFF FLAG SCAN; Mean Corpuscular HGB Conc 31.3 g/dl (31.0-35.0); Mean Corpuscular Hemoglobin 27.3 pg (27.0-33.0); Mean Corpuscular Volume 87.3 fL (80-98); Mean Platelet Volume 9.1 fL (9.4-12.3); Monocytes Absolute Auto 0.3 X10*3/uL (0.1-1.2); Monocytes Percent Auto 5.6 % (2-11); Neutrophils Absolute Auto 4.6 X10*3/uL (2.0-8.3); Neutrophils Percent Auto 83.1 % (45-73); Platelet Count 315 X10*3/uL (160-400); Red Cell Distribution Width 15.9 % (11.0-16.0); SCAN SMEAR FLAG 1; White Blood Count 5.5 X10*3/uL (4.8-10.8)
[2020-09-15 14:38] LABS: Red Blood Count 4.17 X10*6/uL (4.20-5.50)
--- NOTE | 2020-09-15 14:40 | PC.NURSE ---
Pt called with c/o burning with urination. Requested to come in for straight cath urine. Straight cath done, tolerated well. Labs also done per order. Will call with results
[2020-09-15 15:09] LABS: SLIDE REVIEW VERIFIED
[2020-09-15 15:18] LABS: Alanine Aminotransferase 9 U/L (0-31); Albumin Level 3.8 g/dL (3.5-5.0); Alkaline Phosphatase 114 U/L (39-117); Anion Gap 13 (12-20); Aspartate Amino Transferase 9 U/L (5-31); Bilirubin Total 0.5 mg/dL (0.0-1.0); Blood Urea Nitrogen 8 mg/dL (9-16); Calcium 9.2 mg/dL (8.4-10.2); Carbon Dioxide 27 mmol/L (22-29); Chloride 107 mmol/L (96-108); Creatinine Clr Calc Pharmacy 50.7; Estimated Glomerular Filt Rate > 60; Glucose Random 88 mg/dL (60-115); Potassium 4.4 mmol/l (3.3-5.1); Sodium 143 mmol/L (135-145)
[2020-09-15 15:21] LABS: Glucose Urine UA 100 MG/DL (NEG); Leukocyte Esterase Urine 3+ (NEG); Nitrite Urine POS (NEG); PH 5.5 (5.0-8.0); Urine Blood TRACE (NEG); Urine Ketones NEG (NEG); Urine Protein 1+ MG/DL (NEG-TRACE)
[2020-09-15 15:28] LABS: Appearance Urine HAZY; Color Urine ORANGE
[2020-09-15 15:30] LABS: Bacteria Urine 2+ /LPF; RBC Urine 0 /HPF (0); Renal Epithelial Cells Urine TRACE /LPF; Squamous Epithelial Cell Urine 1+ /LPF
[2020-09-25 10:49] LABS: Basophils Absolute Auto 0.1 X10*3/uL (0.0-0.2); Basophils Percent Auto 2.2 % (0-2); Eosinophils Absolute Auto 0.1 X10*3/uL (0.0-0.4); Eosinophils Percent Auto 2.1 % (0-4); Hematocrit 39.5 % (37-47); Hemoglobin 12.6 g/dl (12.0-16.0); Imm Gran Abs Auto 0.06 X10*3/uL (0.00-0.03); Imm Gran Pct Auto 1.1 % (0.0-0.4); Lymphocytes Absolute Auto 0.5 X10*3/uL (1.2-4.9); Lymphocytes Percent Auto 9.7 % (20-40); MANUAL DIFF FLAG SCAN; Mean Corpuscular HGB Conc 31.9 g/dl (31.0-35.0); Mean Corpuscular Volume 84.8 fL (80-98); Monocytes Absolute Auto 0.5 X10*3/uL (0.1-1.2); Monocytes Percent Auto 9.4 % (2-11); Neutrophils Percent Auto 75.5 % (45-73); Platelet Count 360 X10*3/uL (160-400); Red Blood Count 4.66 X10*6/uL (4.20-5.50); Red Cell Distribution Width 15.9 % (11.0-16.0); SCAN SMEAR FLAG 1; White Blood Count 5.3 X10*3/uL (4.8-10.8)
[2020-09-25 10:52] VITALS: BP 131/73; PULSE 95; RESP 17; TEMP 36.8; O2SAT 95
[2020-09-25 11:11] LABS: SLIDE REVIEW VERIFIED
[2020-09-25 11:12] LABS: Alanine Aminotransferase 9 U/L (0-31); Albumin Level 3.7 g/dL (3.5-5.0); Alkaline Phosphatase 106 U/L (39-117); Anion Gap 15 (12-20); Aspartate Amino Transferase 13 U/L (5-31); Bilirubin Total 0.3 mg/dL (0.0-1.0); Blood Urea Nitrogen 10 mg/dL (9-16); Calcium 9.3 mg/dL (8.4-10.2); Carbon Dioxide 24 mmol/L (22-29); Chloride 108 mmol/L (96-108); Creatinine Clr Calc Pharmacy 44.7; Estimated Glomerular Filt Rate 59; Glucose Random 148 mg/dL (60-115); Potassium 3.9 mmol/l (3.3-5.1); Sodium 143 mmol/L (135-145)
--- NOTE | 2020-09-25 12:23 | MHC.HEMONC ---
pt here for lab visit but also met with Dr He. VSS. Labs WNL. She has been weak with less mobility. Intermittent burning on urination. Completed course of antibiotics but still awaiting Sensitivity of unusual bacteria (spec sent out). Dr He watching for it. Pt plans to go back on neuro rx that was being held as it helped her sx. Pt will be getting [facility] RN. Klaudia and Claudette aware. She will be booked for new treatment with KEYTRUDA next Tuesday per Dr He (after conference with Dr Barton at [facility]). Pt is aware.
--- NOTE | 2020-09-25 12:54 | MHC.HEMONCSW ---
REFERRAL FOR PALLIATIVE CARE GIVEN BOTH VERBALLY AND BY FAX TO CIELO AT [facility].
--- NOTE | 2020-09-25 13:59 | P.PNHO_ITS ---
Medical Summary - Medical Summary Chief complaint: F/U for:Recurrent Endometrial Cancer. Medical Summary: DIAGNOSIS: 1. Erdheim-Hartley DISEASE. 2. 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 Depth of invasion:90%. Lymphatic Invasion: present. Blood vessel invasion:present. Stage: pT1b, pN0. Now with locally recurrent endometrial cancer. CURRENT THERAPY: VEMURAFANIB. ANAKINRA. Chemotherapy with Carboplatin/Taxol, weekly, completed 24 weeks of therapy, on May 18 2018. Completed radiation therapy to pelvis. Had brachytherapy completed August 02, in [place]. Now with recurrent endometrial cancer. Started DOXIL February 28. Recieved 8 cycles. Interval History Interval history: This is a pleasant 70-year-old lady here for labs and a follow-up visit. She tells me she had difficulty with urination. she had to go to the emergency room. They placed straight cath. there was not much urine. she was suspected as having a UTI. She was sent home on Keflex q.i.d. She has been sick to her stomach since she started that. She had noticed so much improvement in her functional status. However about 10 days ago she became rather weak. She has had a few falls. She denies fever nor chills. No chest pain or trouble breathing. Denies abdominal pain nausea vomiting heartburn indigestion. Bowels are rather irregular. She has been doing fairly well however, sometimes her bowels act up. She gets trouble with constipation but then it alternates with diarrhea. Her was giving her 1 mg of Imodium for a while and that appeared to be working well she was going to the bathroom regularly. However then she developed diarrhea again. Appetite is fair. She has lost some weight. Her appetite has not been that good. She would eat only half a bagel for breakfast. She is in good spirits. Rest of the review of systems is unremarkable. Review of Systems - Constitutional Reports body ache(s), Reports fatigue, Reports lack of energy, Reports malaise, Reports weakness - Eyes Denies blind spots - ENT Reports system reviewed and no additional complaints, except as documented - Cardiovascular Denies chest pain at rest - Respiratory Denies change in phlegm color - Gastrointestinal Reports abdominal pain, Reports change in bowel habits, Reports diarrhea, Reports nausea - Musculoskeletal Reports abnormal walking - Neurologic Reports system reviewed and no additional complaints, except as documented - Psychiatric Reports anxiety - Endocrine Denies cold intolerance - Hematologic/Lymphatic Denies easy bleeding - Allergic/Immunologic Denies GI upset with certain foods PMFSH Medical History: Medical History (Last Updated 08/29/20 @ 10:07 by Arlene Mckay RN) Erdheim-Neno disease Functional capacity: wheelchair bound Patient : No Home Medications and Allergies Home Medications Medication Instructions Recorded Confirmed Type anakinra 100 mg SUBCUT DAILY 08/29/20 08/29/20 History cholecalciferol (vitamin D3) 1 tab PO DAILY 08/29/20 08/29/20 History dalfampridine 10 mg PO Q12H 08/29/20 08/29/20 History diazepam 2 mg PO BEDTIME PRN 08/29/20 08/29/20 History gabapentin 100 mg PO BEDTIME 08/29/20 08/29/20 History loperamide 1 cap PO DAILY PRN 08/29/20 08/29/20 History melatonin 5 mg PO BEDTIME PRN 08/29/20 08/29/20 History omeprazole 1 cap PO DAILY 08/29/20 08/29/20 History ondansetron 8 mg PO Q8H 08/29/20 08/29/20 History oxycodone 1 tab PO Q4H PRN 08/29/20 08/29/20 History propranolol 80 mg PO DAILY 08/29/20 08/29/20 History simvastatin 1 tab PO BEDTIME 08/29/20 08/29/20 History vemurafenib [Zelboraf] 240 mg PO DAILY 08/29/20 08/29/20 History Allergies Allergy/AdvReac Type Severity Reaction Status Date / Time Sulfa (Sulfonamide Allergy Intermediate NAUSEA/DRY Verified 08/29/20 10:07 Antibiotics) HEAVES [SULFA (SULFONAMIDE ANTIBIOTICS)] codeine [CODEINE] Allergy Unknown VOMITING Verified 08/29/20 10:07 Exam Vital signs: Vital Signs Temp 98.2 F 09/25/20 10:52 Pulse 95 09/25/20 10:52 Resp 17 09/25/20 10:52 BP 131/73 09/25/20 10:52 Pulse Ox 95 09/25/20 10:52 Weight 60.951 kg Body Mass Index 26.2 - Constitutional Present: no acute distress - Routine HEENT Exam Head: Present: normal inspection - Routine Neck Exam Present: full ROM - Routine Abdominal Exam Present: soft, nontender - Routine Rectal Exam Patient deferred: visual exam, digital exam - Routine Extremities Exam Present: nontender - Routine Neurological Exam Present: alert, oriented X3 - Detailed Neurological Exam: Coma Scale Eye Opening: Spontaneous (4) - Routine Psychiatric Exam Present: normal affect Data - Labs CBC & Chem 7: 09/25/20 10:33 09/25/20 10:33 Labs: Laboratory Results - last 24 hr 09/25/20 09/25/20 10:33 10:33 WBC 5.3 RBC 4.66 Hgb 12.6 Hct 39.5 MCV 84.8 MCH 27.0 MCHC 31.9 RDW 15.9 Plt Count 360 MPV 9.0 L Immature Gran % (Auto) 1.1 H Neut % (Auto) 75.5 H Lymph % (Auto) 9.7 L [place] % (Auto) 9.4 Eos % (Auto) 2.1 Baso % (Auto) 2.2 H Lymph # (Auto) 0.5 L [place] # (Auto) 0.5 Eos # (Auto) 0.1 Baso # (Auto) 0.1 Abs Immat Gran (auto) 0.06 H Absolute Neuts (auto) 4.0 Absolute Nucleated RBC 0.000 Nucleated RBC % (auto) 0.0 Smear Tech's Comments VERIFIED Sodium 143 Potassium 3.9 Chloride 108 Carbon Dioxide 24 Anion Gap 15 BUN 10 Creatinine 0.94 Estim Creat Clear Calc 44.7 Estimated GFR 59 Random Glucose 148 H D Calcium 9.3 Total Bilirubin 0.3 AST 13 D ALT 9 Alkaline Phosphatase 106 Total Protein 6.0 L Albumin 3.7 Progress Note: A/P (1) Endometrial cancer Status: Acute Assessment and plan: 70 year old lady with Erdheim Hartley Disease. She had had a skin biopsy of the lesions and it was consistent with Erdheim Neno disease. She had been on Vemurafanib, and Anakinra, they appear to be working. Her last CAT scans of chest abdomen and pelvis, as well as MRI of the brain had reveal Improved disease. 2. She had a laparoscopic HERNAN/BSO on 08/15/18, for diagnosis of Endometrial Carcinoma. I had started her on adjuvant chemotherapy, for the endometrial carcinoma. She completed 6 months of therapy on May 18. She tolerated it well, considering. I picked the low dose weekly regimen to avoid significant systemic toxicities, especially since she has the underlying neurological illness, as well. l proceeded with a set of CAT scans which were done on May 31 and revealed: There is amorphous tissue surrounding aorta and the central portion of the visceral branches. 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 Probable bilateral pelvic lymphoceles. No measurable adenopathy or evidence of recurrent uterine cancer. Micronodules in the lungs are unchanged. She has been followed by Dr. Dick, from [facility]. She was noted to have a local recurrence of her endometrial cancer. She completed the 2nd phase of her radiation therapy with implants, August 02. 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 She was treated with Steroids, which were tapered. She had an echocardiogram which raise concern for left atrial mass. I discussed with Dr. Whitfield, he did not feel strongly about the EUNICE. She now has disease recurrence in the pelvic area. Her who is her primary caregiver, is very supportive. He is willing and available to provide assistance with ADLs, the wheelchair, ETC. She was started on Doxil as the next agent in line, for endometrial carcinoma. In view of her age and comorbidities l started her at the dose of 30 milligram/meter squared, rather than 40 mg/m2, to see how she would tolerate it. She was started on it on February 28. Repeat Imaging after 3 cycles, from May 12 revealed: 1. No metastatic disease. Small stable nodule right middle lobe under 4 mm. 2. No adenopathy or effusion. 3. Thickening aortic arch with irregularity lumen, stable from prior CT 2018. CT abdomen and pelvis: 1. Peritoneal carcinomatosis stable to borderline decreased. No interval ascites. 2. Loculated fluid collection deep left pelvis adjacent to sigmoid and extending to the vaginal cuff borderline increased. No bowel obstruction or focal bowel inflammatory changes. 3. Probable small hepatic cyst stable. Small cystic lesion spleen stable. Over the past week or so she was in the ER for a possible UTI. started on Keflex. Initially, the results were stable. However, recently she has had disease progression. PLAN: She is here to review the treatment options. Choices for next in line treatment includes: 1. Ifex plus Taxol: it is effective but rather toxic and patient is Fragile. I am also concerned about neurotoxicity. 2. Gemcitabine: again it is a chemo agent with its attendant toxicity. She would need to come in almost on a weekly basis. 3.Pembrolizumab: targeted agent with less side effects. Schedule is q. 3 weeks. hopefully with a better quality of life. I have discussed this with neurologist Dr. Bustos. He also feels that pembrolizumab would be the way to go. Her urine culture was negative. I have elected to stop the Keflex that was causing the GI toxicity. She will continue on her immunotherapy, for her Erdheim Neno syndrome. She had a follow up visit with Dr. Barton, things do not appear to be improving. She will return in one week to get started on next Tuesday. Thanks, Please send a copy to: Dr. Amelia Bustos. Dr. Encinas in [place]. Dr. Carrol Brock, [facility] onc[facility]. - Time Spent With Patient Total time spent is greater than 50% in coordination of care (as documented) at patient's floor/unit and/or counseling patient: 25 - 35 minutes
--- NOTE | 2020-09-26 13:39 | MHC.HEMONCSW ---
faxed pa request for keytruda to [facility]. wait decision.
--- NOTE | 2020-09-30 12:18 | MHC.HEMONC ---
Joceline from palliative care called [facility] assigned Dr. He as primary care provider and also needs a new commode. Dr. He aware that she is patients assigned pcp and agreeable. Prescription for commode faxed to [facility] for palliative vna. order faxed and in patients chart.
[2020-10-03 10:15] VITALS: BMI 26.7
[2020-10-03 10:16] VITALS: BP 135/82; PULSE 67; RESP 18; TEMP 36.8; O2SAT 98
[2020-10-03 11:05] LABS: Basophils Absolute Auto 0.1 X10*3/uL (0.0-0.2); Imm Gran Abs Auto 0.02 X10*3/uL (0.00-0.03); Lymphocytes Absolute Auto 0.6 X10*3/uL (1.2-4.9); MANUAL DIFF FLAG SCAN; Mean Corpuscular Volume 86.4 fL (80-98); Monocytes Absolute Auto 0.4 X10*3/uL (0.1-1.2); SCAN SMEAR FLAG 1
[2020-10-03 11:23] LABS: Alanine Aminotransferase 11 U/L (0-31); Albumin Level 3.5 g/dL (3.5-5.0); Alkaline Phosphatase 86 U/L (39-117); Anion Gap 10 (12-20); Aspartate Amino Transferase 12 U/L (5-31); Bilirubin Total 0.5 mg/dL (0.0-1.0); Blood Urea Nitrogen 9 mg/dL (9-16); Calcium 9.1 mg/dL (8.4-10.2); Carbon Dioxide 28 mmol/L (22-29); Chloride 109 mmol/L (96-108); Creatinine Clr Calc Pharmacy 52.4; Estimated Glomerular Filt Rate > 60; Glucose Random 104 mg/dL (60-115); Potassium 4.1 mmol/l (3.3-5.1); Sodium 143 mmol/L (135-145); Total Protein 5.6 g/dL (6.5-8.0)
[2020-10-03 11:50] LABS: Basophils Percent Auto 1.6 % (0-2); Eosinophils Absolute Auto 0.4 X10*3/uL (0.0-0.4); Eosinophils Percent Auto 7.8 % (0-4); Hematocrit 35.5 % (37-47); Hemoglobin 11.1 g/dl (12.0-16.0); Imm Gran Pct Auto 0.4 % (0.0-0.4); Lymphocytes Percent Auto 13.2 % (20-40); Mean Corpuscular HGB Conc 31.3 g/dl (31.0-35.0); Mean Platelet Volume 9.8 fL (9.4-12.3); Monocytes Percent Auto 9.8 % (2-11); Neutrophils Percent Auto 67.2 % (45-73); Platelet Count 264 X10*3/uL (160-400); Red Blood Count 4.11 X10*6/uL (4.20-5.50); Red Cell Distribution Width 15.8 % (11.0-16.0); White Blood Count 4.5 X10*3/uL (4.8-10.8)
[2020-10-03 11:55] LABS: SLIDE REVIEW VERIFIED
[2020-10-03] MEDS: diphenhydrAMINE HCL 25 MG TABLET PO (12:02)
[2020-10-03] MEDS: dexAMETHasone 4 MG TABLET 8 MG PO (12:03)
[2020-10-03] MEDS: Acetaminophen 325 MG TABLET 650 MG PO (12:04)
--- NOTE | 2020-10-03 15:04 | MHC.HEMONC ---
Pt here for first Keytruda infusion. Port accessed, good blood return. Labs obtained, reviewed. Pt states took full course of antibiotics for uti and symptoms were relieved. Once antibiotics were done, started feeling some burning with urination again. Dr He is aware. No other complaints. Tolerated dose of Keytruda. Appointment scheduled for next infusion in 3 weeks.
--- NOTE | 2020-10-03 15:59 | MHC.HEMONCSW ---
pt is accompanied by and is getting keytruda. reports all is well, relies on her farida and family for strength. no c/o or stress at this time. education and support provided.
--- NOTE | 2020-10-15 14:29 | MHC.HEMONCSW ---
KEYTRUDA...DO NOT ADMINISTER UNTIL PA IS RECEIVED.
--- NOTE | 2020-10-15 14:43 | MHC.HEMONCSW ---
CALLED [facility]...... SHARON FOR SAM WENT TO CLINICAL REVIEW. WAIT DECISION. PENDING AUTH ONLY......[id number]. INFORMED ELECTRICAL WIRING LINEMAN DOSE WAS ADMINISTERED PRIOR WITHOUT AUTHORIZATION.
--- NOTE | 2020-10-21 16:07 | MHC.HEMONCSW ---
PER [facility] AT [facility], KRISTENYECENIA IS APPROVED. A# [id number]. DATE RANGE; 10/15/20 TO 10/15/21.
[2020-10-24 10:22] VITALS: BMI 62.4
[2020-10-24 10:23] VITALS: BP 144/67; PULSE 67; RESP 18; TEMP 36.6; O2SAT 98
[2020-10-24 11:14] LABS: Basophils Absolute Auto 0.1 X10*3/uL (0.0-0.2); Basophils Percent Auto 1.2 % (0-2); Eosinophils Absolute Auto 0.3 X10*3/uL (0.0-0.4); Eosinophils Percent Auto 5.6 % (0-4); Hematocrit 39.5 % (37-47); Hemoglobin 12.5 g/dl (12.0-16.0); Imm Gran Abs Auto 0.03 X10*3/uL (0.00-0.03); Imm Gran Pct Auto 0.6 % (0.0-0.4); Lymphocytes Absolute Auto 0.7 X10*3/uL (1.2-4.9); Lymphocytes Percent Auto 13.9 % (20-40); MANUAL DIFF FLAG SCAN; Mean Corpuscular HGB Conc 31.6 g/dl (31.0-35.0); Mean Corpuscular Hemoglobin 26.5 pg (27.0-33.0); Mean Corpuscular Volume 83.7 fL (80-98); Monocytes Absolute Auto 0.6 X10*3/uL (0.1-1.2); Monocytes Percent Auto 11.4 % (2-11); Neutrophils Absolute Auto 3.3 X10*3/uL (2.0-8.3); Neutrophils Percent Auto 67.3 % (45-73); Platelet Count 304 X10*3/uL (160-400); Red Blood Count 4.72 X10*6/uL (4.20-5.50); Red Cell Distribution Width 15.9 % (11.0-16.0); SCAN SMEAR FLAG 1; White Blood Count 4.8 X10*3/uL (4.8-10.8)
[2020-10-24 11:35] LABS: SLIDE REVIEW VERIFIED
[2020-10-24 11:36] LABS: Alanine Aminotransferase 8 U/L (0-31); Albumin Level 2.5 g/dL (3.5-5.0); Alkaline Phosphatase 94 U/L (39-117); Anion Gap 11 (12-20); Aspartate Amino Transferase 17 U/L (5-31); Bilirubin Total 0.7 mg/dL (0.0-1.0); Blood Urea Nitrogen 17 mg/dL (9-16); Carbon Dioxide 28 mmol/L (22-29); Chloride 106 mmol/L (96-108); Creatinine Clr Calc Pharmacy 68.1; Estimated Glomerular Filt Rate 53; Glucose Fasting 97 mg/dL (60-99); Sodium 141 mmol/L (135-145)
[2020-10-24 12:04] LABS: Magnesium 1.9 mg/dL (1.6-2.6)
--- NOTE | 2020-10-24 12:53 | FL_ITS ---
EXAMINATION: XR FLUOROSCOPY PORT INJECTION CLINICAL INFORMATION: Right tunneled port with difficulty obtaining blood return. COMPARISON: CT chest with contrast 05/12/2020 TECHNIQUE: Informed consent obtained prior to injection. Patient signed consent form. The right tunneled port is injected through oncology placed needle with initial skein inspector view and injection of approximately 18 mL Omnipaque 300 intravenous contrast. Following injection, port is injected with a total 10 mL normal saline divided between the 2 lumens. Fluoroscopy time: 0.9 minutes DAP: 1.873 Gycm2 Images: 8 FINDINGS: The port is patent with contrast freely flowing within the superior vena cava. The distal 2-3 cm show subtle irregularity on the catheter surface and fine adjacent linear stranding. Findings suggest fibrin strands around distal end of catheter. Patient tolerated well had no immediate complication. Results called to Dr. Hu at 1432 hours. FL/FL fluoroscopy <1hr IMPRESSION: 1. The right tunneled port/catheter is patent. 2. There are findings suggesting fibrin strands around distal end of catheter.
[2020-10-24] MEDS: Alteplase Cath Clear 2 MG VIAL INTRACATH (14:21)
[2020-10-24] MEDS: dexAMETHasone 4 MG TABLET 8 MG PO (15:29)
[2020-10-24] MEDS: ondansetron HCL/NS 16 MG/50 ML PIGGYBACK 200 MG IV (15:39)
--- NOTE | 2020-10-24 15:42 | MHC.HEMONC ---
Port accessed, but no blood return. Dr. He aware, port study ordered. Patient completed study in radiology- per Dr Torrey colin to use. Patient returned to unit via wheelchair. Dr. He updated, cathflo ordered. Peripheral angio placed to left lower arm to initiate treatment. Withdrew cathflo with positive blood return.
[2020-10-24] MEDS: Heparin Sodium,Porcine Flush 500 UNIT/5 ML SYRINGE IVFLUSH (16:10)
--- NOTE | 2020-10-27 10:04 | MHC.HEMONCSW ---
PATIENT HERE WITH LAST WEEK FOR TREATMENT. SHE IS DECLINING SLOWLY. S/P STROKE AND NEEDS ASSIST OR WHEELCHAIR FOR AMBULATION. DOES NOT LIKE TO DISCUSS HER ILLNESS, AWARE OF MY AVAILABILITY WHEN/IF SHE DOES. IS PRIMARY BANDER. DISCUSSED HIS ROLE, STRESS, ETC. EDUCATION, RESOURCES, GUIDANCE AND SUPPORT PROVIDED.
--- NOTE | 2020-10-29 16:46 | MHC.HEMONC ---
pt [facility] nurse Mary Carmen called to say that pt was visited and she was rather lethargic decreased urine output and BP low 82-91. She advised to hold antihypertensive med and encourage fluids and bring to ER if she worsens. It was now 4:[address] He off today. I will let Dr He know in the morning and we will check in with her.
[2020-10-30 09:00] VITALS: BP 136/77; PULSE 78; RESP 18; TEMP 36.9; O2SAT 96
[2020-10-30 09:02] VITALS: BMI 26.9
[2020-10-30] MEDS: 0.9 % Sodium Chloride 1,000 ML 500 ML IVCONT (09:30)
[2020-10-30 09:44] LABS: MANUAL DIFF FLAG NO
[2020-10-30 09:46] LABS: Basophils Percent Auto 0.7 % (0-2); Eosinophils Absolute Auto 0.3 X10*3/uL (0.0-0.4); Eosinophils Percent Auto 4.7 % (0-4); Hematocrit 38.1 % (37-47); Imm Gran Abs Auto 0.05 X10*3/uL (0.00-0.03); Imm Gran Pct Auto 0.8 % (0.0-0.4); Lymphocytes Absolute Auto 0.7 X10*3/uL (1.2-4.9); Lymphocytes Percent Auto 11.8 % (20-40); Mean Corpuscular HGB Conc 31.5 g/dl (31.0-35.0); Mean Corpuscular Hemoglobin 26.3 pg (27.0-33.0); Mean Corpuscular Volume 83.6 fL (80-98); Mean Platelet Volume 9.1 fL (9.4-12.3); Monocytes Absolute Auto 0.7 X10*3/uL (0.1-1.2); Monocytes Percent Auto 11.8 % (2-11); Neutrophils Absolute Auto 4.2 X10*3/uL (2.0-8.3); Neutrophils Percent Auto 70.2 % (45-73); Platelet Count 252 X10*3/uL (160-400); Red Blood Count 4.56 X10*6/uL (4.20-5.50); Red Cell Distribution Width 16.1 % (11.0-16.0)
--- NOTE | 2020-10-30 09:47 | MHC.HEMONCSW ---
gave me alexandrea p-work to complete because patient assistance ends end of this month. phoned alexandrea on track....reported dr. mcnair must complete form as he prescribes scripts. informed ...believes dr. grey gives scripts. dr. grey unsure. outcome; will call (unknown to me) [facility] and find out who prescribes this.
[2020-10-30 10:22] LABS: Alanine Aminotransferase 10 U/L (0-31); Albumin Level 2.4 g/dL (3.5-5.0); Alkaline Phosphatase 103 U/L (39-117); Anion Gap 13 (12-20); Aspartate Amino Transferase 16 U/L (5-31); Bilirubin Total 0.5 mg/dL (0.0-1.0); Blood Urea Nitrogen 14 mg/dL (9-16); Calcium 7.6 mg/dL (8.4-10.2); Carbon Dioxide 26 mmol/L (22-29); Chloride 105 mmol/L (96-108); Creatinine Clr Calc Pharmacy 52.5; Estimated Glomerular Filt Rate > 60; Glucose Fasting 87 mg/dL (60-99); Potassium 3.8 mmol/l (3.3-5.1); Sodium 140 mmol/L (135-145); Total Protein 4.8 g/dL (6.5-8.0)
[2020-10-30 11:45] VITALS: BP 148/70
--- NOTE | 2020-10-31 13:42 | MHC.HEMONC ---
spoke to pt . She has unchanged weakness in legs. They are awaiting return call from Dr Bustos, Neurology. Today BP was 122/89. She restarted her BP med that she held for [address] He it should be given if SBP> 120. He will call here Tuesday if he does not hear from Neurologist.
[2020-11-07 13:28] VITALS: BMI 26.9
--- NOTE | 2020-11-10 13:08 | MHC.HEMONCSW ---
DENISSE SENT PA FOR BA TO CLINICAL REVIEW. THEY WILL DECIDE TO APPROVE OR NOT. PENDING A# [id number]
--- NOTE | 2020-11-13 08:59 | MHC.HEMONCSW ---
BA APPROVED BY [facility]. A# [id number] 11/10/20 TO 11/10/21.
--- NOTE | 2020-11-13 10:12 | MHC.HEMONCMA ---
Patient's Parveen called in concerned with the patients leg, states that it is swollen. I asked Parveen if I could have a nurse call him back to discuss this matter, he agreed and asked for Arlene. I took his name and patient information, along with best number and let Arlene know to call him. Patient is ok with this plan.
[2020-11-13 12:50] VITALS: BP 134/84; PULSE 69; RESP 18; TEMP 36.2; O2SAT 96
--- NOTE | 2020-11-13 13:16 | MHC.HEMONC ---
Pt called to report RLE swelling. BLE weak. Pt brought in for chemo teach vs next week as she will be starting Gemcitabine Dr Hansen saw itand ordered RLE u/s to be done today.
--- NOTE | 2020-11-13 14:44 | PM.EVENT ---
I was asked to evaluate patient because of acute swelling of both legs but her right leg much worse than the left. Exam revealed significant swelling of the right calf without redness or significant tenderness. She was sent for urgent Doppler which revealed extensive clot in the right lower extremity and a smaller clot in the left. Preliminary report was given to me, official report not in the computer yet. I discussed above findings with patient and her . We discussed anticoagulation with Lovenox 60 mg subcu b.i.d.. One dose will be administered today and he will administer for the patient at home. She has normal kidney functions and her CBC was fairly good couple of weeks ago.
--- NOTE | 2020-11-13 14:48 | MHC.HEMONC ---
Pt was positive for BLE blood cots. To start on Lovenox (will be shown how to give here in Clinic). Her administers Kineret s.c. to pt so he is aware. Pt ed given re: new med and how to give s.c. injection .
[2020-11-13] MEDS: Enoxaparin Sodium 60 MG/0.6 ML SYRINGE SUBCUT (15:15)
--- NOTE | 2020-11-17 14:50 | MHC.HEMONC ---
Joceline from [facility] called states patient is doing very poorly has fallen 4x at home in the last 4 days. Palli score 40. last seen 11/13/20 diagnosed with bilateral dvts on lovenox at home. Dr. He made aware, spoke with CRISA and patients patient agreeable to go to emergency room fro furthure evaluation.
--- NOTE | 2020-11-27 17:18 | MHC.HEMONC ---
Pt called with update and this was reported to Dr He. Pt still residing in Rehab and is refusing to work with PT. She is on antibiotic. She remains weak. He will update us as time goes on.
--- NOTE | 2020-12-09 12:57 | MHC.HEMONC ---
Pt called to check on pt status. She is leaving Rehab today but he has not been updated on her ADL status. He reports she is not eating. I told him to call us after she is home 48 hours or so to see how she is doing. She could have Televisit with Dr He. It sounds unlikely that she will be able to resume chemo at this point (was supposed to start Gemcitabine).
--- NOTE | 2021-06-08 15:20 | MHC.HEMONC ---
for our records, patient status is .
== END | disposition home or self-care (01) ==
LOC: HO.ONC 08-28 08:08
PROVIDERS: PCP Internal Medicine; Visit Provider Internal Medicine Medical Oncology
DX: Z51.11 Encounter for antineoplastic chemotherapy (principal); C54.1 Malignant neoplasm of endometrium; I82.403 Acute embolism and thrombosis of unspecified deep veins of lower extremity, bilateral; T82.898A Other specified complication of vascular prosthetic devices, implants and grafts, initial encounter; E88.89 Other specified metabolic disorders; Z76.89 Persons encountering health services in other specified circumstances; Z90.710 Acquired absence of both cervix and uterus; Z90.722 Acquired absence of ovaries, bilateral; Z92.3 Personal history of irradiation
CPT/HCPCS: 36415; 36593; 76000; 80053; 81001; 83735; 85025; 86304; 87086; 87088; 96360; 96361; 96366; 96367; 96374; 96375; 96377; 96413; 99211; 99214; J1100; J1453; J1642; J1650; J2405; J2505; J2997; J8540; J9271; Q0163; Q2050; Q9967